=== PATIENT | male | born 1945 | race Caucasian/White ===

== ENCOUNTER → 2017-02-11 | Outpatient (CLI) | payer MEDICARE, BC | LOC: MW.CHIM 08:00 | PROVIDERS: ATTEND Internal Medicine | DX: I48.0 Paroxysmal atrial fibrillation (principal); I82.439 Acute embolism and thrombosis of unspecified popliteal vein; G47.30 Sleep apnea, unspecified; I10 Essential (primary) hypertension | CPT/HCPCS: G0463 ==

== ENCOUNTER → 2017-02-12 | Outpatient (CLI) | payer MEDICARE, BC | LOC: MW.CHRC 08:00 | PROVIDERS: ATTEND Family Medicine | DX: Z51.81 Encounter for therapeutic drug level monitoring (principal); Z79.01 Long term (current) use of anticoagulants; I48.91 Unspecified atrial fibrillation | CPT/HCPCS: 85610; 99211 ==

== ENCOUNTER 2017-02-22 23:44 | Emergency (ER) | payer MEDICARE, BC ==
[2017-02-23] MEDS ORDERED: methylPREDNISolone Sodium Succinate 125 MG/2 ML SDV IVPUSH ONE (00:12)
[2017-02-23] MEDS ORDERED: Sodium Chloride 0.9% 10 ML Syringe FLUSH PRN (00:12)
[2017-02-23] MEDS ORDERED: Sodium Chloride 0.9% 2.5 ML Syringe FLUSH PRN (00:12)
[2017-02-23] MEDS ORDERED: Albuterol/Ipratropium 3.0-0.5 MG/3 ML Neb Soln NEB ONE ×2 (00:12→01:18)
[2017-02-23] MEDS ORDERED: Levofloxacin/Dextrose 5%-Water 750 MG in Premix Bag 1 BAG IV ONE (00:21)
--- NOTE | 2017-02-23 00:31 | EDM.PDOC ---
ED HISTORY OF PRESENT ILLNESS - General Chief Complaint: Respiratory Problem Stated Complaint: CONGESTION Time Seen by Provider: 02/23/17 00:20 Source of Information: Reports: Patient, Family, RN - History of Present Illness INITIAL COMMENTS - FREE TEXT/NARRATIVE: He presented to the emergency department today because of recent cough. He has been on antibiotics for sinusitis. Most recently he took Cefdinir. He continues to cough. Recently he had some sweats. He has never smoked. He denies history of asthma. He denies dust exposure at work. Is retired. - Related Data Allergies/ADRs: Allergies Allergy/AdvReac Type Severity Reaction Status Date / Time amoxicillin [Amoxicillin] Allergy Diarrhea Verified 02/22/17 23:54 clavulanic acid Allergy Diarrhea Verified 02/22/17 23:54 [From Augmentin] doxycycline Allergy Diarrhea Verified 02/22/17 23:54 montelukast AdvReac Diarrhea Verified 02/22/17 23:54 Home Meds: Home Meds Diltiazem HCl [Taztia Xt] 360 mg PO DAILY 04/12/15 [History] Hydrochlorothiazide 25 mg PO DAILY 04/12/15 [History] Metoprolol Tartrate [Lopressor] 25 mg PO BID 04/12/15 [History] Multivitamin [Multivitamins] 1 tab PO DAILY 04/12/15 [History] Olmesartan [Benicar] 10 mg PO DAILY 04/12/15 [History] [place]-3 Fatty Acids [Fish Oil] 1,000 mg pe PO DAILY 04/12/15 [History] Simvastatin [Zocor] 20 mg PO BEDTIME 04/12/15 [History] Azelastine/Fluticasone [Dymista Nasal [place]] 1 spray NASLF DAILY 11/07/15 [ History] Lactobacillus Rhamnosus GG [Culturelle] 1 cap PO DAILY 02/23/17 [History] Sodium Chloride [Saline Nasal [place]] 1 inh INH DAILY 02/23/17 [History] Warfarin Sodium [Jantoven] 5 mg PO ASDIRECTED 02/23/17 [History] Past Medical History HEENT History: Reports: Allergic rhinitis, Impaired vision, Sinusitis Other HEENT History: wears glasses, has dental implants and lower dentures Cardiovascular History: Reports: Afib, High cholesterol, Hypertension Respiratory History: Reports: None Gastrointestinal History: Reports: None Other Gastrointestinal History: occas. 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, no residual effects Psychiatric History: Reports: Anxiety Endocrine/Metabolic History: Reports: None Hematologic History: Reports: None Immunologic History: Reports: None Oncologic (Cancer) History: Reports: None Dermatologic History: Reports: Other (see below) Other Dermatologic History: current rash in groin area - Infectious Disease History Infectious Disease History: Reports: Measles - Past Surgical History HEENT Surgical History: Reports: Naso-sinus surgery Other HEENT Surgeries/Procedures: Sinus surgery Cardiovascular Surgical History: Reports: None Respiratory Surgical History: Reports: None GI Surgical History: Reports: Appendectomy, Cholecystectomy, Hernia, inguinal Male Surgical History: Reports: None Neurological Surgical History: Reports: None Musculoskeletal Surgical History: Reports: Other (see below) Other Musculoskeletal Surgeries/Procedures:: hx of fx neck Social & Family History - Family History Family Medical History: Noncontributory - Tobacco Use Smoking Status *Q: Never Smoker Second Hand Smoke Exposure: No - Caffeine Use Caffeine Use: Reports: Coffee Caffeine Use Comment: 1cup/day - Alcohol Use Days Per Week of Alcohol Use: 7 Number of Drinks Per Day: 1 Total Drinks Per Week: 7 - Recreational Drug Use Recreational Drug Use: No ED ROS GENERAL - Review of Systems Review Of Systems: See Below Constitutional: Reports: other (He had some night sweats.) Respiratory: Reports: Wheezing, Cough Cardiovascular: Denies: Chest pain GI/Abdominal: Denies: Abdominal pain Skin: Denies: cyanosis Neurological: Denies: Confusion Psychiatric: Denies: Agitation ED EXAM, GENERAL - Physical Exam Exam: See Below General Appearance: alert, no apparent distress Ears: normal canal, normal TMs Nose: other (As a feeling of fullness and pressure over his maxillary and frontal sinuses) Throat/Mouth: Normal inspection, Normal oropharynx Head: atraumatic Neck: normal inspection Respiratory/Chest: no respiratory distress, wheezing (Prolongation of expiration noted no dyspnea noted at rest.) Cardiovascular: no JVD, irregularly irregular Course - Vital Signs Last Recorded V/S: Last Vital Signs Temp 97.4 F 02/22/17 23:48 Pulse 86 02/23/17 00:44 Resp 17 02/23/17 00:44 BP 135/84 02/23/17 00:44 Pulse Ox 96 02/23/17 00:44 - Orders/Labs/Meds Orders: Active Orders 24 hr Category Date Time Status RT Aerosol Therapy [RC] ASDIRECTED Care 02/23/17 00:12 Active RT Aerosol Therapy [RC] ASDIRECTED Care 02/23/17 01:19 Ordered CXR [Chest 2V] [CR] Stat Exams 02/23/17 00:13 Taken Albuterol/Ipratropium [DuoNeb 3.0-0.5 MG/3 ML] Med 02/23/17 01:18 Once 3 ml NEB ONETIME ONE Levofloxacin/Dextrose 5%-Water [Levaquin in D5W 750 MG/ Med 02/23/17 00:21 Active 150 ML] 750 mg Premix Bag 1 bag IV ONETIME Sodium Chloride 0.9% [Saline Flush] Med 02/23/17 00:12 Active 10 ml FLUSH ASDIRECTED PRN Sodium Chloride 0.9% [Saline Flush] Med 02/23/17 00:12 Active 2.5 ml FLUSH ASDIRECTED PRN Saline Lock Insert [OM.PC] Stat Oth 02/23/17 00:12 Ordered Medication Orders Levofloxacin/Dextrose 750 mg/ (Premix) 150 mls @ 100 mls/hr IV ONETIME ONE Stop: 02/23/17 01:50 Last Admin: 02/23/17 00:35 Dose: 100 mls/hr Sodium Chloride (Saline Flush) 10 ml FLUSH ASDIRECTED PRN PRN Reason: Keep Vein Open Last Admin: 02/23/17 00:29 Dose: 10 ml Sodium Chloride (Saline Flush) 2.5 ml FLUSH ASDIRECTED PRN PRN Reason: Keep Vein Open Last Admin: 02/23/17 00:29 Dose: 2.5 ml Labs: Laboratory Tests 02/23/17 02/23/17 02/23/17 Range/Units 00:25 00:25 00:25 WBC 9.21 (4.0-11.0) K/uL RBC 4.55 (4.50-5.90) M/uL Hgb 14.5 (13.0-17.0) g/dL Hct 42.6 (38.0-50.0) % MCV 93.6 (80.0-98.0) fL MCH 31.9 (27.0-32.0) pg MCHC 34.0 (31.0-37.0) g/dL RDW Std Deviation 42.2 (28.0-62.0) fl RDW Coeff of Tati 13 (11.0-15.0) % Plt Count 301 (150-400) K/uL MPV 9.70 (7.40-12.00) fL Add Manual Diff YES Neutrophils % (Manual) 54 (48.0-80.0) % Lymphocytes % (Manual) 32 (16.0-40.0) % Monocytes % (Manual) 6 (0.0-15.0) % Eosinophils % (Manual) 8 H (0.0-7.0) % Absolute Seg Neuts 5.0 Band Neutrophils # 2.9 Lymphocytes # (Manual) 2.9 Monocytes # (Manual) 0.6 Eosinophils # (Manual) 0.7 INR 1.85 H (0.86-1.11) Sodium 138 (136-146) mmol/L Potassium 3.8 (3.5-5.1) mmol/L Chloride 101 (98-110) mmol/L Carbon Dioxide 25 (21-31) mmol/L BUN 21 (6.0-23.0) mg/dL Creatinine 1.2 (0.6-1.5) mg/dL Est Cr Clr Drug Dosing 60.18 mL/min Estimated GFR (MDRD) 59.3 ml/min Glucose 129 H (60-110) mg/dL Calcium 9.3 (8.8-10.8) mg/dL Total Bilirubin 0.5 (0.1-1.5) mg/dL AST 24 (5-40) IU/L ALT 33 (8-54) IU/L Alkaline Phosphatase 59 (40-150) B-Natriuretic Peptide (<100) PG/ML Total Protein 6.9 (6.0-8.0) g/dL Albumin 4.0 (3.4-4.8) g/dL Globulin 2.9 (2.0-3.5) g/dL Albumin/Globulin Ratio 1.4 (1.3-2.8) 02/23/17 Range/Units 00:25 WBC (4.0-11.0) K/uL RBC (4.50-5.90) M/uL Hgb (13.0-17.0) g/dL Hct (38.0-50.0) % MCV (80.0-98.0) fL MCH (27.0-32.0) pg MCHC (31.0-37.0) g/dL RDW Std Deviation (28.0-62.0) fl RDW Coeff of Tati (11.0-15.0) % Plt Count (150-400) K/uL MPV (7.40-12.00) fL Add Manual Diff Neutrophils % (Manual) (48.0-80.0) % Lymphocytes % (Manual) (16.0-40.0) % Monocytes % (Manual) (0.0-15.0) % Eosinophils % (Manual) (0.0-7.0) % Absolute Seg Neuts Band Neutrophils # Lymphocytes # (Manual) Monocytes # (Manual) Eosinophils # (Manual) INR (0.86-1.11) Sodium (136-146) mmol/L Potassium (3.5-5.1) mmol/L Chloride (98-110) mmol/L Carbon Dioxide (21-31) mmol/L BUN (6.0-23.0) mg/dL Creatinine (0.6-1.5) mg/dL Est Cr Clr Drug Dosing mL/min Estimated GFR (MDRD) ml/min Glucose (60-110) mg/dL Calcium (8.8-10.8) mg/dL Total Bilirubin (0.1-1.5) mg/dL AST (5-40) IU/L ALT (8-54) IU/L Alkaline Phosphatase (40-150) B-Natriuretic Peptide 225 H (<100) PG/ML Total Protein (6.0-8.0) g/dL Albumin (3.4-4.8) g/dL Globulin (2.0-3.5) g/dL Albumin/Globulin Ratio (1.3-2.8) Meds: Medications Generic Name Dose Route Start Last Admin Trade Name Freq PRN Reason Stop Dose Admin Levofloxacin/Dextrose 750 mg/ 150 mls @ 100 mls/hr 02/23/17 00:21 02/23/17 00 :35 Premix IV 02/23/17 01:50 100 mls/hr ONETIME ONE Administration Sodium Chloride 10 ml 02/23/17 00:12 02/23/17 00:29 Saline Flush FLUSH 10 ml ASDIRECTED PRN Administration Keep Vein Open Sodium Chloride 2.5 ml 02/23/17 00:12 02/23/17 00:29 Saline Flush FLUSH 2.5 ml ASDIRECTED PRN Administration Keep Vein Open Discontinued Medications Generic Name Dose Route Start Last Admin Trade Name Ada PRN Reason Stop Dose Admin Albuterol/Ipratropium 3 ml 02/23/17 00:12 02/23/17 00:28 Duoneb 3.0-0.5 Mg/3 Ml NEB 02/23/17 00:13 3 ml ONETIME ONE Administration Methylprednisolone Sodium Succinate 125 mg 02/23/17 00:12 02/23/17 00:29 Solu-Medrol IVPUSH 02/23/17 00:13 125 mg ONETIME ONE Administration Departure - Departure Time of Disposition: 02:20 Disposition: Home, Self-Care 01 Clinical Impression: Sinusitis, Bronchospasm with bronchitis, acute Forms: ED Department Discharge Additional Instructions: Prescriptions given are Levaquin 500 mg by mouth daily x7 days. Prednisone 40 mg daily x4 days and then 20 mg daily x4 days. Albuterol HFA inhaler 2 puffs every 4 hours when necessary wheezing. He has a followup appointment with ENT specialist this next week. We discussed potential side effect of prednisone being changed in mood or irritability. - My Orders Last 24 Hours: My Active Orders 02/23/17 00:12 RT Aerosol Therapy [RC] ASDIRECTED Sodium Chloride 0.9% [Saline Flush] 10 ml FLUSH ASDIRECTED PRN Sodium Chloride 0.9% [Saline Flush] 2.5 ml FLUSH ASDIRECTED PRN Saline Lock Insert [OM.PC] Stat 02/23/17 00:13 CXR [Chest 2V] [CR] Stat 02/23/17 00:21 Levofloxacin/Dextrose 5%-Water [Levaquin in D5W 750 MG/150 ML] 750 mg Premix Bag 1 bag IV ONETIME 02/23/17 01:18 Albuterol/Ipratropium [DuoNeb 3.0-0.5 MG/3 ML] 3 ml NEB ONETIME ONE 02/23/17 01:19 RT Aerosol Therapy [RC] ASDIRECTED - Assessment/Plan Last 24 Hours: My Active Orders 02/23/17 00:12 RT Aerosol Therapy [RC] ASDIRECTED Sodium Chloride 0.9% [Saline Flush] 10 ml FLUSH ASDIRECTED PRN Sodium Chloride 0.9% [Saline Flush] 2.5 ml FLUSH ASDIRECTED PRN Saline Lock Insert [OM.PC] Stat 02/23/17 00:13 CXR [Chest 2V] [CR] Stat 02/23/17 00:21 Levofloxacin/Dextrose 5%-Water [Levaquin in D5W 750 MG/150 ML] 750 mg Premix Bag 1 bag IV ONETIME 02/23/17 01:18 Albuterol/Ipratropium [DuoNeb 3.0-0.5 MG/3 ML] 3 ml NEB ONETIME ONE 02/23/17 01:19 RT Aerosol Therapy [RC] ASDIRECTED
[2017-02-23 03:30] VITALS: BP 123/83
--- NOTE | 2017-02-25 16:54 | CR ---
EXAM DATE: 02/22/17 PATIENT'S AGE: 71 Patient: NAMRATA MIGUEL Facility: [place], [place] Site . Site : 1945 Study: XRay Chest [id number]/1/[id number] 12:56:38 AM Ordering Physician: Doctor Macario Final Report: INDICATION: cough, congestion. pt states sinus infection for two weeks, cough from drainage starting today TECHNIQUE: Chest radiograph 2 views COMPARISON: 11/07/15 FINDINGS: Cardiovascular and mediastinum: The cardiac silhouette is normal in appearance and size. Mediastinum is within normal limits. Lungs and pleural spaces: Both lungs are unremarkable in appearance. No sign of pleural effusion. No pneumothorax is seen. Bones and soft tissues: No significant findings. IMPRESSION: 1. No acute cardiopulmonary disease seen. Dictated by: Malik Serrato MD @ 02/23/2017 00:59:39 (Electronic Signature) Report Signed by Proxy and Original Signed Document filed in the Medical Record. LIANG[facility]
== END 2017-02-23 02:33 | disposition home or self-care (01) ==
LOC: MW.ED 23:44
DX: J20.9 Acute bronchitis, unspecified (principal); J32.9 Chronic sinusitis, unspecified; I48.91 Unspecified atrial fibrillation; E78.00 Pure hypercholesterolemia, unspecified; I10 Essential (primary) hypertension; F41.9 Anxiety disorder, unspecified; Z86.73 Personal history of transient ischemic attack (TIA), and cerebral infarction without residual deficits; Z79.01 Long term (current) use of anticoagulants; Z79.899 Other long term (current) drug therapy; Z90.49 Acquired absence of other specified parts of digestive tract; Z88.1 Allergy status to other antibiotic agents; Z88.8 Allergy status to other drugs, medicaments and biological substances
CPT/HCPCS: 36415; 71020; 80053; 83880; 85025; 85610; 96365; 96366; 96375; 99284; J1956; J2930; 99283

== ENCOUNTER 2017-02-24 19:31 | Emergency (ER) | payer MEDICARE, BC ==
[2017-02-24] MEDS ORDERED: Albuterol/Ipratropium 3.0-0.5 MG/3 ML Neb Soln NEB ONE (19:58)
[2017-02-24] MEDS ORDERED: guaiFENesin/Dextromethorphan 100-10 MG/5 ML Soln 10 ML Cup PO ONE (21:30)
--- NOTE | 2017-02-24 21:40 | EDM.PDOC ---
ED HISTORY OF PRESENT ILLNESS - General Chief Complaint: Respiratory Problem Stated Complaint: BRONCHITIS Time Seen by Provider: 02/24/17 19:40 Source of Information: Reports: Patient History Limitations: Reports: No limitations - History of Present Illness INITIAL COMMENTS - FREE TEXT/NARRATIVE: History of present illness: [71-year-old male presenting to the ED with concerns of coughing and increasing shortness of breath with cough. Patient indicates he was seen was given antibiotics and an inhaler, he perceives is to be helping him it's just when the infection and "broke loose from my face" it was getting difficult for him to catch his breath with the bouts of coughing.] Review of systems: As per history of present illness and below otherwise all systems reviewed and negative. Past medical history: As per history of present illness and as reviewed below otherwise noncontributory. Surgical history: As per history of present illness and as reviewed below otherwise noncontributory. Social history: No reported history of drug or alcohol abuse. Family history: As per history of present illness and as reviewed below otherwise noncontributory. Physical exam: HEENT: Atraumatic, normocephalic, pupils reactive, negative for conjunctival pallor or scleral icterus, mucous membranes moist, throat clear, neck supple, nontender, trachea midline. Lungs: Clear to auscultation, breath sounds equal bilaterally, chest nontender. Heart: S1S2, regular, negative for clicks, rubs, or JVD. Abdomen: Soft, nondistended, nontender. Negative for masses or hepatosplenomegaly. Negative for costovertebral tenderness. Pelvis: Stable nontender. Genitourinary: Deferred. Rectal: Deferred. Extremities: Atraumatic, negative for cords or calf pain. Neurovascular unremarkable. Neuro: Awake, alert, oriented. Cranial nerves II through XII unremarkable. Cerebellum unremarkable. Motor and sensory unremarkable throughout. Exam nonfocal. Patient observed to have a couple bouts of coughing while in the room noticed 2- D stat to the high 80% (86-88%) it took a period of time for patient to compensate and get back to his baseline which is 93-94% on room air Diagnostics: [Chest x-ray] Therapeutics: [DuraNeb him a Nasonex] Impression: [Cough] Plan: [Mucinex DM] Definitive disposition and diagnosis as appropriate pending reevaluation and review of above. - Related Data Allergies/ADRs: Allergies Allergy/AdvReac Type Severity Reaction Status Date / Time amoxicillin [Amoxicillin] Allergy Diarrhea Verified 02/22/17 23:54 clavulanic acid Allergy Diarrhea Verified 02/22/17 23:54 [From Augmentin] doxycycline Allergy Diarrhea Verified 02/22/17 23:54 montelukast AdvReac Diarrhea Verified 02/22/17 23:54 Home Meds: Home Meds Diltiazem HCl [Taztia Xt] 360 mg PO DAILY 04/12/15 [History] Hydrochlorothiazide 25 mg PO DAILY 04/12/15 [History] Metoprolol Tartrate [Lopressor] 25 mg PO BID 04/12/15 [History] Multivitamin [Multivitamins] 1 tab PO DAILY 04/12/15 [History] Olmesartan [Benicar] 10 mg PO DAILY 04/12/15 [History] [place]-3 Fatty Acids [Fish Oil] 1,000 mg pe PO DAILY 04/12/15 [History] Simvastatin [Zocor] 20 mg PO BEDTIME 04/12/15 [History] Azelastine/Fluticasone [Dymista Nasal [place]] 1 spray NASLF DAILY 11/07/15 [ History] Lactobacillus Rhamnosus GG [Culturelle] 1 cap PO DAILY 02/23/17 [History] Sodium Chloride [Saline Nasal [place]] 1 inh INH DAILY 02/23/17 [History] Warfarin Sodium [Jantoven] 5 mg PO ASDIRECTED 02/23/17 [History] Guaifenesin/Pseudoephedrne HCl [Hm Mucus Rlf D ER 600-60 mg Tb] 1 each PO BID # 30 tab.er.12h 02/24/17 [Rx] Past Medical History HEENT History: Reports: Allergic rhinitis, Impaired vision, Sinusitis Other HEENT History: wears glasses, has dental implants and lower dentures Cardiovascular History: Reports: Afib, High cholesterol, Hypertension Respiratory History: Reports: None Gastrointestinal History: Reports: None Other Gastrointestinal History: occas. 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, no residual effects Psychiatric History: Reports: Anxiety Endocrine/Metabolic History: Reports: None Hematologic History: Reports: None Immunologic History: Reports: None Oncologic (Cancer) History: Reports: None Dermatologic History: Reports: Other (see below) Other Dermatologic History: current rash in groin area - Infectious Disease History Infectious Disease History: Reports: Measles - Past Surgical History HEENT Surgical History: Reports: Naso-sinus surgery Other HEENT Surgeries/Procedures: Sinus surgery Cardiovascular Surgical History: Reports: None Respiratory Surgical History: Reports: None GI Surgical History: Reports: Appendectomy, Cholecystectomy, Hernia, inguinal Male Surgical History: Reports: None Neurological Surgical History: Reports: None Musculoskeletal Surgical History: Reports: Other (see below) Other Musculoskeletal Surgeries/Procedures:: hx of fx neck Social & Family History - Family History Family Medical History: Noncontributory - Tobacco Use Smoking Status *Q: Never Smoker Second Hand Smoke Exposure: No - Caffeine Use Caffeine Use: Reports: None Caffeine Use Comment: 1cup/day - Alcohol Use Days Per Week of Alcohol Use: 7 Number of Drinks Per Day: 1 Total Drinks Per Week: 7 - Recreational Drug Use Recreational Drug Use: No ED ROS GENERAL - Review of Systems Review Of Systems: See Below (History of present illness) ED EXAM, GENERAL - Physical Exam Exam: See Below (See history of present illness) Course - Vital Signs Last Recorded V/S: Last Vital Signs Temp 36.8 C 02/24/17 19:44 Pulse 84 02/24/17 20:30 Resp 18 02/24/17 20:30 BP 115/52 L 02/24/17 20:30 Pulse Ox 95 02/24/17 20:30 - Orders/Labs/Meds Orders: Active Orders 24 hr Category Date Time Status RT Aerosol Therapy [RC] ASDIRECTED Care 02/24/17 19:58 Ordered CXR [Chest 2V] [CR] Stat Exams 02/24/17 20:34 Ordered Meds: Medications Discontinued Medications Generic Name Dose Route Start Last Admin Trade Name Freq PRN Reason Stop Dose Admin Albuterol/Ipratropium 3 ml 02/24/17 19:58 02/24/17 20:06 Duoneb 3.0-0.5 Mg/3 Ml NEB 02/24/17 19:59 3 ml ONETIME ONE Administration Guaifenesin/Dextromethorphan 10 ml 02/24/17 21:30 Robitussin Dm PO 02/24/17 21:31 ONETIME ONE Departure - Departure Time of Disposition: 21:39 Disposition: Home, Self-Care 01 Condition: good Clinical Impression: Cough in adult Prescriptions: Guaifenesin/Pseudoephedrne HCl [Hm Mucus Rlf D ER 600-60 mg Tb] 1 each PO BID # 30 tab.er.12h Forms: ED Department Discharge Additional Instructions: The following information is given to patients seen in the emergency department who are being discharged to home. This information is to outline your options for follow-up care. We provide all patients seen in our emergency department with a follow-up referral. The need for follow-up, as well as the timing and circumstances, are variable depending upon the specifics of your emergency department visit. If you don't have a primary care physician on staff, we will provide you with a referral. We always advise you to contact your personal physician following an emergency department visit to inform them of the circumstance of the visit and for follow-up with them and/or the need for any referrals to a consulting specialist. The emergency department will also refer you to a specialist when appropriate. This referral assures that you have the opportunity for follow-up care with a specialist. All of these measure are taken in an effort to provide you with optimal care, which includes your follow-up. Under all circumstances we always encourage you to contact your private physician who remains a resource for coordinating your care. When calling for follow-up care, please make the office aware that this follow-up is from your recent emergency room visit. If for any reason you are refused follow-up, please contact the [facility] Emergency Department at and asked to speak to the emergency department charge nurse. Take medication as directed Followup with primary care provider in tomorrow for reevaluation Return to ED as needed as discussed - My Orders Last 24 Hours: My Active Orders 02/24/17 19:58 RT Aerosol Therapy [RC] ASDIRECTED 02/24/17 20:34 CXR [Chest 2V] [CR] Stat - Assessment/Plan Last 24 Hours: My Active Orders 02/24/17 19:58 RT Aerosol Therapy [RC] ASDIRECTED 02/24/17 20:34 CXR [Chest 2V] [CR] Stat
[2017-02-24] MEDS ORDERED: guaiFENesin/Dextromethorphan 100-10 MG/5 ML Soln 10 ML Cup ONE (22:09)
[2017-02-24 23:29] VITALS: BP 112/61
--- NOTE | 2017-02-25 19:18 | CR ---
EXAM DATE: 02/24/17 PATIENT'S AGE: 71 Patient: NAMRATA MIGUEL Facility: [place], [place] Site . Site : 1945 Study: XRay Chest [id number]/2/[id number] 8:54:26 PM Ordering Physician: Doctor Macario Final Report: INDICATIONS: Shortness of breath. Cough. Sinus congestion. TECHNIQUE: Chest 2 view. COMPARISON: Chest radiograph February 23, 2017. FINDINGS: No pneumothorax or pleural effusion. Mild left basilar scarring or atelectasis, unchanged. Lungs are otherwise clear. Aortic atherosclerosis and tortuosity as before. Borderline cardiomegaly. No pulmonary edema. Upper abdomen and osseous structures show no acute abnormality. IMPRESSION: No evidence of acute cardiopulmonary disease. Dictated by Elder Schwartz MD @ 02/24/2017 9:23:54 PM Dictated by: Elder Schwartz MD @ 02/24/2017 21:24:07 (Electronic Signature) Report Signed by Proxy and Original Signed Document filed in the Medical Record. [facility]
== END 2017-02-24 22:18 | disposition home or self-care (01) ==
LOC: MW.ED 19:31
DX: R05 Cough (principal); I48.91 Unspecified atrial fibrillation; I10 Essential (primary) hypertension; E78.00 Pure hypercholesterolemia, unspecified; Z86.73 Personal history of transient ischemic attack (TIA), and cerebral infarction without residual deficits; Z79.01 Long term (current) use of anticoagulants; Z79.899 Other long term (current) drug therapy; Z90.49 Acquired absence of other specified parts of digestive tract; Z98.890 Other specified postprocedural states; Z88.1 Allergy status to other antibiotic agents; Z88.8 Allergy status to other drugs, medicaments and biological substances
CPT/HCPCS: 71020; 94664; 99283; A9270; 99284

== ENCOUNTER → 2017-03-12 | Outpatient (CLI) | payer MEDICARE, BC | LOC: MW.CHRC 08:00 | PROVIDERS: ATTEND Family Medicine | DX: Z51.81 Encounter for therapeutic drug level monitoring (principal); Z79.01 Long term (current) use of anticoagulants; I48.91 Unspecified atrial fibrillation | CPT/HCPCS: 85610; 99211 ==

== ENCOUNTER → 2017-03-14 | Outpatient (CLI) | payer MEDICARE, BC | LOC: MW.CHRC 08:00 | PROVIDERS: ATTEND Family Medicine | DX: Z51.81 Encounter for therapeutic drug level monitoring (principal); Z79.01 Long term (current) use of anticoagulants; I48.91 Unspecified atrial fibrillation | CPT/HCPCS: 85610; 99211 ==

== ENCOUNTER → 2017-03-25 | Outpatient (CLI) | payer MEDICARE, BC | LOC: MW.CHRC 08:00 | PROVIDERS: ATTEND Family Medicine | DX: Z51.81 Encounter for therapeutic drug level monitoring (principal); Z79.01 Long term (current) use of anticoagulants; I48.91 Unspecified atrial fibrillation | CPT/HCPCS: 85610; 99211 ==

== ENCOUNTER → 2017-04-16 | Outpatient (CLI) | payer MEDICARE, BC | LOC: MW.CHGS 08:00 | PROVIDERS: ATTEND Surgery | DX: R19.4 Change in bowel habit (principal); I48.91 Unspecified atrial fibrillation; Z79.01 Long term (current) use of anticoagulants; F41.1 Generalized anxiety disorder | CPT/HCPCS: 99214 ==

== ENCOUNTER 2017-05-06 10:49 | Day surgery (SDC) | payer MEDICARE, BC ==
[~2017-05-06 10:49] MED LIST: Lactated Ringers 1,000 ML IV SCH; Midazolam 1 MG/ML 2 ML SDV ONE; Propofol 200 MG/20 ML SDV ONE; fentaNYL 100 MCG/2 ML SDV ONE
--- NOTE | 2017-05-06 11:48 | PCM.PREANE ---
Preanesthetic Assessment - Anesthesia/Transfusion/Family Hx Anesthesia History: Prior Anesthesia Without Reaction Family History of Anesthesia Reaction: No Transfusion History: No Prior Transfusion(s) Intubation History: Unknown - Review of Systems General: No Symptoms Pulmonary: No Symptoms Cardiovascular: No Symptoms Gastrointestinal: Diarrhea Neurological: No Symptoms Other: Reports: None - Physical Assessment O2 Sat by Pulse Oximetry: 96 Respiratory Rate: 16 Vital Signs: Last Vital Signs Temp 36.2 C 05/06/17 11:28 Pulse 96 05/06/17 11:28 Resp 16 05/06/17 11:28 BP 142/92 H 05/06/17 11:28 Pulse Ox 96 05/06/17 11:28 Height: 1.83 m Weight: 96.615 kg ASA Class: 3 Mental Status: Alert & Oriented x3 Airway Class: Mallampati = 2 Dentition: Reports: Partial (lower), Bridge (upper front) Thyro-Mental Finger Breadths: 2 Mouth Opening Finger Breadths: 3 ROM/Head Extension: Limited/Partial Lungs: Clear to auscultation, Normal respiratory effort Cardiovascular: Regular Rate, Regular Rhythm - Allergies Allergies/Adverse Reactions: Allergies Allergy/AdvReac Type Severity Reaction Status Date / Time amoxicillin [Amoxicillin] Allergy Diarrhea Verified 05/02/17 15:26 clavulanic acid Allergy Diarrhea Verified 05/02/17 15:26 [From Augmentin] doxycycline Allergy Diarrhea Verified 05/02/17 15:26 montelukast AdvReac Diarrhea Verified 05/02/17 15:26 - Blood Blood Available: No - Anesthesia Plan Pre-Op Medication Ordered: None Beta Elmo: Metoprolol Med Last Dose Date: 05/06/17 Med Last Dose Time: 08:00 - Acknowledgements Anesthesia Type Planned: MAC Pt an Appropriate Candidate for the Planned Anesthesia: Yes Alternatives and Risks of Anesthesia Discussed w Pt/Guardian: Yes Pt/Guardian Understands and Agrees with Anesthesia Plan: Yes PreAnesthesia Questionnaire HEENT History: Reports: Allergic Rhinitis, Impaired Vision, Sinusitis Other HEENT History: wears glasses, has dental implants and lower dentures Cardiovascular History: Reports: Afib, High Cholesterol, Hypertension, Other ( See Below) (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 heartburn Genitourinary History: Reports: BPH, Other (See Below) Other Genitourinary History: was told he has a "fatty liver" Musculoskeletal History: Reports: Back Pain, Chronic, Fracture Other Musculoskeletal History: states has degenerative discs, hx of FX neck ' 02 wore hallo - no surgery needed Neurological History: Reports: Concussion, TIA Other Neuro History: TIA 12 years ago, no residual effects Psychiatric History: Reports: Anxiety Endocrine/Metabolic History: Reports: None Hematologic History: Reports: Anticoagulation Therapy Immunologic History: Reports: None Oncologic (Cancer) History: Reports: None Dermatologic History: Reports: None - Infectious Disease History Infectious Disease History: Reports: Measles - Past Surgical History Head Surgeries/Procedures: Reports: None HEENT Surgical History: Reports: Naso-Sinus Surgery Other HEENT Surgeries/Procedures: Sinus surgery Cardiovascular Surgical History: Reports: None Respiratory Surgical History: Reports: None GI Surgical History: Reports: Appendectomy, Cholecystectomy, Colonoscopy, Hernia , Inguinal Male Surgical History: Reports: None Endocrine Surgical History: Reports: None Neurological Surgical History: Reports: None Musculoskeletal Surgical History: Reports: Other (See Below) Other Musculoskeletal Surgeries/Procedures:: hx of fx neck Oncologic Surgical History: Reports: None Dermatological Surgical History: Reports: None - SUBSTANCE USE Smoking Status *Q: Never Smoker Second Hand Smoke Exposure: No Days Per Week of Alcohol Use: 7 Number of Drinks Per Day: 1 Total Drinks Per Week: 7 Recreational Drug Use History: No - HOME MEDS Home Medications: Home Meds Diltiazem HCl [Taztia Xt] 360 mg PO DAILY 04/12/15 [History] Metoprolol Tartrate [Lopressor] 25 mg PO BID 04/12/15 [History] Multivitamin [Multivitamins] 1 tab PO DAILY 04/12/15 [History] Olmesartan [Benicar] 10 mg PO DAILY 04/12/15 [History] Sheyenne-3 Fatty Acids [Fish Oil] 1,000 mg pe PO DAILY 04/12/15 [History] Simvastatin [Zocor] 20 mg PO BEDTIME 04/12/15 [History] Lactobacillus Rhamnosus GG [Culturelle] 1 cap PO DAILY 02/23/17 [History] Warfarin Sodium [Jantoven] 5 mg PO ASDIRECTED 02/23/17 [History] Colestipol HCl 1 tab PO ASDIRECTED 05/02/17 [History] Fiber Complete 1 tab PO ASDIRECTED 05/02/17 [History] Fluticasone Propionate [Flonase Allergy Relief] 1 - 2 spray NASBOTH DAILY [History] Hydrochlorothiazide 25 mg PO DAILY 05/02/17 [History] Tamsulosin HCl [Flomax] 0.4 mg PO BEDTIME 05/02/17 [History] Vit C/Vasquez Ac/Lut/Copper/ZnOx [Preservision Lutein Softgel] 1 tab PO DAILY 05/02 [History] - CURRENT (IN HOUSE) MEDS Current Meds: Current Medications Lactated Ringer's (Ringers, Lactated) 1,000 mls @ 125 mls/hr IV ASDIRECTED [facility] Last Admin: 05/06/17 11:30 Dose: 125 mls/hr Discontinued Medications Fentanyl (Sublimaze) Confirm Administered Dose 100 mcg .ROUTE .STK-MED ONE Stop: 05/06/17 07:21 Midazolam HCl (Versed 1 Mg/Ml) Confirm Administered Dose 2 mg .ROUTE .STK-MED ONE Stop: 05/06/17 07:21 Propofol (Diprivan 20 Ml) Confirm Administered Dose 200 mg .ROUTE .STK-MED ONE Stop: 05/06/17 07:21
[2017-05-06] MEDS ORDERED: Propofol 200 MG/20 ML SDV ONE (14:13)
--- NOTE | 2017-05-06 14:41 | PCM.OPNOTE ---
- General Post-Op/Procedure Note Date of Surgery/Procedure: 05/06/17 Operative Procedure(s): Colonoscopy Pre Op Diagnosis: Change in bowel habits Post-Op Diagnosis: No evidence of neoplasia. No inflammatory changes. Anesthesia Technique: MAC (ASA III) Primary Surgeon: Rico Baltazar Condition: Good Free Text/Narrative:: Dictation [id number]
[2017-05-06] MEDS ORDERED: Lactated Ringers 1,000 ML IV SCH (14:45)
--- NOTE | 2017-05-06 14:48 | PCM.POSTAN ---
POST ANESTHESIA ASSESSMENT - MENTAL STATUS Mental Status: alert, oriented - RESPIRATORY Respiratory Status: respiratory rate WNL, airway patent, O2 saturation stable - CARDIOVASCULAR CV Status: pulse rate WNL, blood pressure stable - GASTROINTESTINAL GI Status: no symptoms - POST OP HYDRATION Hydration Status: adequate & stable - OBSERVATIONS Free Text/Narrative:: no anesthesia problems
--- NOTE | 2017-05-06 15:48 | PCM48HPAN ---
Post Anesthesia Note - EVALUATION WITHIN 48HRS OF ANESTHETIC Vital Signs in Normal Range: Yes Patient Participated in Evaluation: Yes Respiratory Function Stable: Yes Airway Patent: Yes Cardiovascular Function Stable: Yes Hydration Status Stable: Yes Pain Control Satisfactory: Yes Nausea and Vomiting Control Satisfactory: Yes Mental Status Recovered: Yes
[2017-05-06 16:41] VITALS: BP 114/72
--- NOTE | 2017-05-06 21:05 | OR ---
SURGEON: Rico Baltazar M.D. DATE OF PROCEDURE: 05/06/2017 OPERATION PERFORMED: Colonoscopy. ANESTHESIA: MAC. ASA CLASSIFICATION: III. PREOPERATIVE DIAGNOSIS: Change in bowel habits. POSTOPERATIVE DIAGNOSIS: No evidence of neoplasia. DESCRIPTION OF PROCEDURE: The patient was taken to the endoscopy room and placed on the endoscopy table in the left lateral decubitus position. Time-out was called for appropriate identification of the patient and procedure. Monitored anesthesia care was provided. The colonoscope was inserted into the rectum and advanced without difficulty to the cecum where the colonoscope was retroflexed to visualize the ascending colon from below. The colonoscope was then straightened and slowly withdrawn. The cecum, ascending colon, hepatic flexure, transverse colon, splenic flexure, descending colon, sigmoid colon, and rectum were very well visualized. No tumors, polyps, diverticula, or angiodysplastic changes were noted. There was no inflammatory change noted anywhere in the lower gastrointestinal tract. No stricture or spasm was noted. Once the colonoscope was withdrawn to the rectum, it was retroflexed to visualize the anal orifice from above. No tumors or polyps were seen and there were no acute hemorrhoidal changes. The colonoscope was straightened the rectum aspirated, and the colonoscope was removed. The patient tolerated the procedure well and was taken to recovery room in stable condition. DAYNA MALHOTRA /[id number]
== END 2017-05-06 15:30 | disposition home or self-care (01) ==
LOC: MW.SDS 10:49
PROVIDERS: ATTEND Surgery
PROC: 0DJD8ZZ Inspection of Lower Intestinal Tract, Via Natural or Artificial Opening Endoscopic (ICD-10-PCS; principal; 2017-05-06)
DX: R19.4 Change in bowel habit (principal); F41.1 Generalized anxiety disorder; G47.30 Sleep apnea, unspecified; I48.91 Unspecified atrial fibrillation; N40.1 Benign prostatic hyperplasia with lower urinary tract symptoms; R35.1 Nocturia; E78.00 Pure hypercholesterolemia, unspecified; I10 Essential (primary) hypertension; Z88.0 Allergy status to penicillin; Z88.1 Allergy status to other antibiotic agents; Z88.8 Allergy status to other drugs, medicaments and biological substances; Z86.73 Personal history of transient ischemic attack (TIA), and cerebral infarction without residual deficits; Z86.718 Personal history of other venous thrombosis and embolism; Z79.01 Long term (current) use of anticoagulants; Z79.51 Long term (current) use of inhaled steroids; Z79.899 Other long term (current) drug therapy; Z90.49 Acquired absence of other specified parts of digestive tract; Z98.890 Other specified postprocedural states
CPT/HCPCS: 36415; 45378; 85610; J3010; J7120; 00810; J2250; J2704

== ENCOUNTER 2017-08-29 15:30 | Observation (INO) | payer MEDICARE, BC ==
[~2017-08-29 15:30] MED LIST changes: -Lactated Ringers 1,000 ML IV SCH; -Midazolam 1 MG/ML 2 ML SDV ONE; -Propofol 200 MG/20 ML SDV ONE; +Warfarin 5 MG Tab PO SCH; -fentaNYL 100 MCG/2 ML SDV ONE
[2017-08-29] MEDS ORDERED: Ondansetron 4 MG/2 ML SDV IVPUSH ONE (16:03)
[2017-08-29] MEDS ORDERED: Sodium Chloride 0.9% 10 ML Syringe FLUSH PRN (16:03)
[2017-08-29] MEDS ORDERED: Pantoprazole 40 MG Vial IVPUSH ONE (16:03)
[2017-08-29] MEDS ORDERED: Sodium Chloride 0.9% 1,000 ML IV ONE (16:03)
[2017-08-29] MEDS ORDERED: Sodium Chloride 0.9% 2.5 ML Syringe FLUSH PRN (16:03)
--- NOTE | 2017-08-29 16:08 | EDM.PDOC ---
ED HPI GENERAL MEDICAL PROBLEM - General Chief Complaint: Syncope Stated Complaint: DIZZY AND WEAK Time Seen by Provider: 08/29/17 15:49 - History of Present Illness INITIAL COMMENTS - FREE TEXT/NARRATIVE: HISTORY AND PHYSICAL: History of present illness: The patient is a 72-year-old male with a known history of hypercholesterolemia A. fib DVT and on Coumadin therapy who follows at [facility] with Dr. 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 Silver; the patient presents today with a one -month history of arrests back pain for which she has seen his provider and has an MRI scheduled and has been using [id number] ibuprofen and complains of feeling very weak and sleepy the last few days and today at the store felt like he might pass out due to generalized weakness. The patient denies any focal extremity or area of weakness on his body and is not dizzy but he is more lightheaded and feels completely drained like he would pass out. He did not actually pass out or black out and has no head or neck pain but has this chronic mid thoracic pain that radiates up and down his spine. He says it is not flank pain and he has no urinary complaints. Patient has been using over-the -counter ibuprofen for the discomfort and has no other pain medications prescribed for that. He has no neurovascular changes in his legs. He has no anterior abdominal pain and no chest pain or shortness of breath. The patient states that he just feels so drowsy and sleepy the last few days and he said that when he was at the store he almost felt like he might does fall asleep while he was walking. Patient has a history of a colonoscopy a month ago that was normal and he says that he actually saw his railroad police yesterday Dr. Silver. He was told that everything was okay from that standpoint. He had a bowel movement today that was not black or bloody and no diarrhea and has been eating and drinking normally. Currently in the ER he is complaining mostly of severe nausea and this profound weakness. Review of systems: As per history of present illness and below otherwise all systems reviewed and negative. Past medical history: As per history of present illness and as reviewed below otherwise noncontributory. Surgical history: As per history of present illness and as reviewed below otherwise noncontributory. Social history: No reported history of drug or alcohol abuse. Family history: As per history of present illness and as reviewed below otherwise noncontributory. Physical exam: Gen.: Well-developed well-nourished man who is intermittently having some dry heaves in the ER but no vomitus. Vital signs have been noted by me. He moves easily in the ED without discomfort or assistance. He speaks clearly and easily HEENT: Atraumatic, normocephalic, pupils reactive, negative for conjunctival pallor or scleral icterus, mucous membranes moist, throat clear, neck supple, nontender, trachea midline. Lungs: Clear to auscultation, breath sounds equal bilaterally, chest nontender. No worker breathing or sensory muscle use Heart: S1S2, regular, negative for clicks, rubs, or JVD. Abdomen: Soft, nondistended, nontender. No palpable masses rebound or guarding and bowel sounds are slightly hypoactive. There is no tympany on percussion Negative for masses or hepatosplenomegaly. Negative for costovertebral tenderness. Pelvis: Stable nontender. Genitourinary: Deferred. Rectal: Deferred. Extremities: Atraumatic, negative for cords or calf pain. Neurovascular unremarkable. No pedal edema Neuro: Awake, alert, oriented. Cranial nerves II through XII unremarkable. Cerebellum unremarkable. Motor and sensory unremarkable throughout. Exam nonfocal. Skin: No rashes or lesions are seen overtly and turgor is normal. Patient overall has a slight pale appearance Diagnostics: EKG CBC CMP amylase lipase troponin INR UA orthostatic vitals CT scan of the head chest abdomen and pelvis including thoracic spine Therapeutics: IV O2 monitor IV fluids Zofran Morphine 1740: Dr. Phelan was present in the ER in case was discussed with him at this time. He is aware CT scans are pending but he has agreed for admission and continued monitoring for the near syncopal symptoms. I will follow-up the CAT scans and only change the admission and re-disposition as indicated. All labs have been reviewed. 1845: All the CT scans have been reviewed and I also discussed the chest abdomen and pelvis with the radiologist. There is no acute process in his chest abdomen and pelvis but he does have endplate fractures of T3-T4 and T12 of unclear age which may be causing his thoracic spine pain. We will continue to process and transferred to the floor for observation admission. I discussed all these results with the patient and family at bedside. Impression: Near syncope/nausea and vomiting with history of subacute thoracic back pain, endplate fractures of the vertebral bodies of T3-T4 and T12 age indeterminant Definitive disposition and diagnosis as appropriate pending reevaluation and review of above. - Related Data Allergies Allergy/AdvReac Type Severity Reaction Status Date / Time amoxicillin [Amoxicillin] Allergy Diarrhea Verified 08/29/17 15:43 clavulanic acid Allergy Diarrhea Verified 08/29/17 15:43 [From Augmentin] doxycycline Allergy Diarrhea Verified 08/29/17 15:43 montelukast AdvReac Diarrhea Verified 08/29/17 15:43 Home Meds: Home Meds Diltiazem HCl [Taztia Xt] 360 mg PO DAILY 04/12/15 [History] Metoprolol Tartrate [Lopressor] 25 mg PO BID 04/12/15 [History] Multivitamin [Multivitamins] 1 tab PO DAILY 04/12/15 [History] Olmesartan [Benicar] 10 mg PO DAILY 04/12/15 [History] [place]-3 Fatty Acids [Fish Oil] 1,000 mg pe PO DAILY 04/12/15 [History] Simvastatin [Zocor] 20 mg PO BEDTIME 04/12/15 [History] Lactobacillus Rhamnosus GG [Culturelle] 1 cap PO DAILY 02/23/17 [History] Warfarin Sodium [Jantoven] 5 mg PO ASDIRECTED 02/23/17 [History] Colestipol HCl 1 tab PO ASDIRECTED 05/02/17 [History] Fiber Complete 1 tab PO ASDIRECTED 05/02/17 [History] Fluticasone Propionate [Flonase Allergy Relief] 1 - 2 spray NASBOTH DAILY [History] Hydrochlorothiazide 25 mg PO DAILY 05/02/17 [History] Tamsulosin HCl [Flomax] 0.4 mg PO DAILY 05/02/17 [History] Vit C/Vasquez Ac/Lut/Copper/ZnOx [Preservision Lutein Softgel] 1 tab PO DAILY 05/02 [History] Past Medical History HEENT History: Reports: Allergic Rhinitis, Impaired Vision, Sinusitis Other HEENT History: wears glasses, has dental implants and lower dentures Cardiovascular History: Reports: Afib, High Cholesterol, Hypertension, Other ( See Below) Respiratory History: Reports: None, Sleep Apnea Gastrointestinal History: Reports: None Other Gastrointestinal History: occas. heartburn Genitourinary History: Reports: Other (See Below) Other Genitourinary History: was told he has a "fatty liver" Musculoskeletal History: Reports: Back Pain, Chronic Other Musculoskeletal History: states has degenerative discs, hx of FX neck ' 02 wore hallo - no surgery needed Neurological History: Reports: TIA Other Neuro History: TIA 12 years ago, no residual effects Psychiatric History: Reports: Anxiety Endocrine/Metabolic History: Reports: None Hematologic History: Reports: None Immunologic History: Reports: None Oncologic (Cancer) History: Reports: None Dermatologic History: Reports: Other (See Below) Other Dermatologic History: current rash in groin area - Infectious Disease History Infectious Disease History: Reports: Measles - Past Surgical History Head Surgeries/Procedures: Reports: None HEENT Surgical History: Reports: Naso-Sinus Surgery Other HEENT Surgeries/Procedures: Sinus surgery Cardiovascular Surgical History: Reports: None Respiratory Surgical History: Reports: None Endocrine Surgical History: Reports: None Oncologic Surgical History: Reports: None Social & Family History - Family History Family Medical History: Noncontributory - Tobacco Use Smoking Status *Q: Never Smoker Second Hand Smoke Exposure: No - Caffeine Use Caffeine Use: Reports: None Caffeine Use Comment: 1cup/day - Alcohol Use Days Per Week of Alcohol Use: 7 Number of Drinks Per Day: 1 Total Drinks Per Week: 7 - Recreational Drug Use Recreational Drug Use: No Drug Use in Last 12 Months: No ED ROS GENERAL - Review of Systems Review Of Systems: ROS reveals no pertinent complaints other than HPI. ED EXAM, GENERAL - Physical Exam Exam: See Below (See dictation) Course - Vital Signs Last Recorded V/S: Last Vital Signs Temp 36.6 C 08/29/17 15:30 Pulse 86 08/29/17 18:20 Resp 16 08/29/17 18:20 BP 132/77 08/29/17 18:20 Pulse Ox 96 08/29/17 15:30 Orthostatic Blood Pressure [ 116/71 Supine] Orthostatic Blood Pressure [ 111/66 Standing] - Orders/Labs/Meds Orders: Active Orders 24 hr Category Date Time Status Patient Status [ADT] Routine ADT 08/29/17 17:46 Active Ambulate [RC] PER UNIT ROUTINE Care 08/29/17 17:48 Active Cardiac Monitoring [RC] . DIRECTED Care 08/29/17 15:59 Active Cardiac Monitoring [RC] CONTINUOUS Care 08/29/17 17:48 Active EKG Documentation Completion [RC] STAT Care 08/29/17 15:59 Active Orthostatic Vital Signs [RC] ASDIRECTED Care 08/29/17 16:03 Active Oxygen Therapy [RC] PRN Care 08/29/17 17:46 Active Oxygen Therapy, ED [RC] ASDIRECTED Care 08/29/17 15:59 Active Pulse Oximetry [RC] ASDIRECTED Care 08/29/17 15:59 Active Up With Assistance [RC] ASDIRECTED Care 08/29/17 17:46 Active VTE/DVT Education [RC] PER UNIT ROUTINE Care 08/29/17 17:46 Active Vital Signs [RC] Q4H Care 08/29/17 17:46 Active 2 Gram Sodium Diet [DIET] Diet 08/30/17 Breakfast Active Ang Abdomen [CT] Stat Exams 08/29/17 16:01 Taken Ang Chest [CT] Stat Exams 08/29/17 16:01 Taken Head wo Cont [CT] Stat Exams 08/29/17 16:02 Taken Thoracic Spine wo Cont [CT] Stat Exams 08/29/17 16:02 Taken CBC WITH AUTO DIFF [HEME] AM Lab 08/30/17 05:11 Ordered COMPREHENSIVE METABOLIC PN,CMP [CHEM] AM Lab 08/30/17 05:11 Ordered INR,PT,PROTHROMBIN TIME [COAG] AM Lab 08/30/17 05:11 Ordered INR,PT,PROTHROMBIN TIME [COAG] AM Lab 08/31/17 05:11 Ordered INR,PT,PROTHROMBIN TIME [COAG] AM Lab 09/01/17 05:11 Ordered Acetaminophen [Tylenol] Med 08/29/17 17:46 Active 650 mg PO Q4H PRN Diltiazem [Cardizem CD] Med 08/30/17 09:00 Active 360 mg PO DAILY Hydrochlorothiazide Med 08/30/17 09:00 Active 25 mg PO DAILY Metoprolol Tartrate [Lopressor] Med 08/29/17 21:00 Active 25 mg PO BID Morphine Med 08/29/17 17:46 Active 2 mg IVPUSH Q2H PRN Olmesartan [Benicar] Med 08/30/17 09:00 Active 10 mg PO DAILY Ondansetron [Zofran ODT] Med 08/29/17 17:46 Active 4 mg PO Q4H PRN Sodium Chloride 0.9% [Normal Saline] 1,000 ml Med 08/29/17 18:00 Active IV ASDIRECTED Sodium Chloride 0.9% [Saline Flush] Med 08/29/17 16:03 Active 10 ml FLUSH ASDIRECTED PRN Sodium Chloride 0.9% [Saline Flush] Med 08/29/17 16:03 Active 2.5 ml FLUSH ASDIRECTED PRN Tamsulosin [Flomax] Med 08/29/17 21:00 Active 0.4 mg PO BEDTIME Warfarin [Coumadin] Med 09/05/17 14:00 Active 2.5 mg PO Th@1400 Warfarin [Coumadin] Med 08/29/17 14:00 Active 5 mg PO SuMoTuWeFrSa@1400 Saline Lock Insert [OM.PC] Stat Oth 08/29/17 15:59 Ordered VTE Pharmacological Contraindications [AST] Per Unit Oth 08/29/17 17:46 Ordered Routine Resuscitation Status Routine Resus Stat 08/29/17 17:46 Ordered Medication Orders Acetaminophen (Tylenol) 650 mg PO Q4H PRN PRN Reason: Pain (Mild 1-3)/fever Diltiazem HCl (Cardizem Cd) 360 mg PO DAILY LALA Hydrochlorothiazide (Hydrochlorothiazide) 25 mg PO DAILY LALA Sodium Chloride (Normal Saline) 1,000 mls @ 80 mls/hr IV ASDIRECTED LALA Last Admin: 08/29/17 18:26 Dose: 80 mls/hr Metoprolol Tartrate (Lopressor) 25 mg PO BID LALA Morphine Sulfate (Morphine) 2 mg IVPUSH Q2H PRN PRN Reason: Pain (severe 7-10) Stop: 08/30/17 17:50 Olmesartan (Benicar) 10 mg PO DAILY [facility] Ondansetron HCl (Zofran Odt) 4 mg PO Q4H PRN PRN Reason: nausea, able to take PO Sodium Chloride (Saline Flush) 10 ml FLUSH ASDIRECTED PRN PRN Reason: Keep Vein Open Last Admin: 08/29/17 16:10 Dose: 10 ml Sodium Chloride (Saline Flush) 2.5 ml FLUSH ASDIRECTED PRN PRN Reason: Keep Vein Open Last Admin: 08/29/17 16:58 Dose: 2.5 ml Tamsulosin HCl (Flomax) 0.4 mg PO BEDTIME LALA Warfarin Sodium (Coumadin) 5 mg PO SuMoTuWeFrSa@1400 [facility] Warfarin Sodium (Coumadin) 2.5 mg PO Th@1400 [facility] Labs: Laboratory Tests 08/29/17 08/29/17 08/29/17 Range/Units 16:00 16:00 16:00 WBC 9.62 (4.0-11.0) K/uL RBC 4.61 (4.50-5.90) M/uL Hgb 14.8 (13.0-17.0) g/dL Hct 43.3 (38.0-50.0) % MCV 93.9 (80.0-98.0) fL MCH 32.1 H (27.0-32.0) pg MCHC 34.2 (31.0-37.0) g/dL RDW Std Deviation 46.0 (28.0-62.0) fl RDW Coeff of Tati 14 (11.0-15.0) % Plt Count 305 (150-400) K/uL MPV 9.50 (7.40-12.00) fL Neut % (Auto) 67.3 (48.0-80.0) % Lymph % (Auto) 21.1 (16.0-40.0) % Mcdonald % (Auto) 9.4 (0.0-15.0) % Eos % (Auto) 1.9 (0.0-7.0) % Baso % (Auto) 0.3 (0.0-1.5) % Neut # (Auto) 6.5 H (1.4-5.7) K/uL Lymph # (Auto) 2.0 (0.6-2.4) K/uL Mcdonald # (Auto) 0.9 H (0.0-0.8) K/uL Eos # (Auto) 0.2 (0.0-0.7) K/uL Baso # (Auto) 0.0 (0.0-0.1) K/uL Nucleated RBC % 0.0 /100WBC Nucleated RBCs # 0 K/uL INR 2.21 H (0.86-1.11) Sodium 138 (136-146) mmol/L Potassium 3.8 (3.5-5.1) mmol/L Chloride 104 (98-110) mmol/L Carbon Dioxide 24 (21-31) mmol/L BUN 23 (6.0-23.0) mg/dL Creatinine 1.1 (0.6-1.5) mg/dL Est Cr Clr Drug Dosing 64.67 mL/min Estimated GFR (MDRD) > 60.0 ml/min Glucose 103 (60-110) mg/dL Calcium 9.6 (8.8-10.8) mg/dL Phosphorus (2.4-4.7) mg/dL Magnesium (1.5-2.3) mEq/L Total Bilirubin 0.5 (0.1-1.5) mg/dL AST 27 (5-40) IU/L ALT 29 (8-54) IU/L Alkaline Phosphatase 47 (40-150) Troponin I (0.0-0.29) NG/ML Total Protein 7.1 (6.0-8.0) g/dL Albumin 4.2 (3.4-4.8) g/dL Globulin 2.9 (2.0-3.5) g/dL Albumin/Globulin Ratio 1.5 (1.3-2.8) Amylase 42 (10-90) U/L Lipase 27 (7-80) U/L Urine Color Urine Appearance Urine pH (5.0-8.0) Ur Specific [place] (1.001-1.035) Urine Protein (NEGATIVE) mg/dL Urine Glucose (UA) (NEGATIVE) mg/dL Urine Ketones (NEGATIVE) mg/dL Urine Occult Blood (NEGATIVE) Urine Nitrite (NEGATIVE) Urine Bilirubin (NEGATIVE) Urine Urobilinogen (<2.0) EU/dL Ur Leukocyte Esterase (NEGATIVE) Urine RBC (0-2/HPF) Urine WBC (0-5/HPF) Ur Epithelial Cells (NONE-FEW) Amorphous Sediment (NEGATIVE) Urine Bacteria (NEGATIVE) 08/29/17 08/29/17 08/29/17 Range/Units 16:00 16:10 17:25 WBC (4.0-11.0) K/uL RBC (4.50-5.90) M/uL Hgb (13.0-17.0) g/dL Hct (38.0-50.0) % MCV (80.0-98.0) fL MCH (27.0-32.0) pg MCHC (31.0-37.0) g/dL RDW Std Deviation (28.0-62.0) fl RDW Coeff of Tati (11.0-15.0) % Plt Count (150-400) K/uL MPV (7.40-12.00) fL Neut % (Auto) (48.0-80.0) % Lymph % (Auto) (16.0-40.0) % Mcdonald % (Auto) (0.0-15.0) % Eos % (Auto) (0.0-7.0) % Baso % (Auto) (0.0-1.5) % Neut # (Auto) (1.4-5.7) K/uL Lymph # (Auto) (0.6-2.4) K/uL Mcdonald # (Auto) (0.0-0.8) K/uL Eos # (Auto) (0.0-0.7) K/uL Baso # (Auto) (0.0-0.1) K/uL Nucleated RBC % /100WBC Nucleated RBCs # K/uL INR (0.86-1.11) Sodium (136-146) mmol/L Potassium (3.5-5.1) mmol/L Chloride (98-110) mmol/L Carbon Dioxide (21-31) mmol/L BUN (6.0-23.0) mg/dL Creatinine (0.6-1.5) mg/dL Est Cr Clr Drug Dosing mL/min Estimated GFR (MDRD) ml/min Glucose (60-110) mg/dL Calcium (8.8-10.8) mg/dL Phosphorus 4.3 (2.4-4.7) mg/dL Magnesium 1.5 (1.5-2.3) mEq/L Total Bilirubin (0.1-1.5) mg/dL AST (5-40) IU/L ALT (8-54) IU/L Alkaline Phosphatase (40-150) Troponin I < 0.10 (0.0-0.29) NG/ML Total Protein (6.0-8.0) g/dL Albumin (3.4-4.8) g/dL Globulin (2.0-3.5) g/dL Albumin/Globulin Ratio (1.3-2.8) Amylase (10-90) U/L Lipase (7-80) U/L Urine Color YELLOW Urine Appearance CLEAR Urine pH 5.5 (5.0-8.0) Ur Specific [place] 1.025 (1.001-1.035) Urine Protein NEGATIVE (NEGATIVE) mg/dL Urine Glucose (UA) NEGATIVE (NEGATIVE) mg/dL Urine Ketones NEGATIVE (NEGATIVE) mg/dL Urine Occult Blood NEGATIVE (NEGATIVE) Urine Nitrite NEGATIVE (NEGATIVE) Urine Bilirubin NEGATIVE (NEGATIVE) Urine Urobilinogen 0.2 (<2.0) EU/dL Ur Leukocyte Esterase NEGATIVE (NEGATIVE) Urine RBC 0-1 (0-2/HPF) Urine WBC 1-2 (0-5/HPF) Ur Epithelial Cells FEW (NONE-FEW) Amorphous Sediment FEW (NEGATIVE) Urine Bacteria FEW (NEGATIVE) Meds: Medications Generic Name Dose Route Start Last Admin Trade Name Freq PRN Reason Stop Dose Admin Acetaminophen 650 mg 08/29/17 17:46 Tylenol PO Q4H PRN Pain (Mild 1-3)/fever Diltiazem HCl 360 mg 08/30/17 09:00 Cardizem Cd PO DAILY LALA Hydrochlorothiazide 25 mg 08/30/17 09:00 Hydrochlorothiazide PO DAILY [facility] Sodium Chloride 1,000 mls @ 80 mls/hr 08/29/17 18:00 08/29/17 18:26 Normal Saline IV 80 mls/hr ASDIRECTED LALA Administration Metoprolol Tartrate 25 mg 08/29/17 21:00 Lopressor PO BID LALA Morphine Sulfate 2 mg 08/29/17 17:46 Morphine IVPUSH 08/30/17 17:50 Q2H PRN Pain (severe 7-10) Olmesartan 10 mg 08/30/17 09:00 Benicar PO DAILY LALA Ondansetron HCl 4 mg 08/29/17 17:46 Zofran Odt PO Q4H PRN nausea, able to take PO Sodium Chloride 10 ml 08/29/17 16:03 08/29/17 16:10 Saline Flush FLUSH 10 ml ASDIRECTED PRN Administration Keep Vein Open Sodium Chloride 2.5 ml 08/29/17 16:03 08/29/17 16:58 Saline Flush FLUSH 2.5 ml ASDIRECTED PRN Administration Keep Vein Open Tamsulosin HCl 0.4 mg 08/29/17 21:00 Flomax PO BEDTIME LALA Warfarin Sodium 5 mg 08/29/17 14:00 Coumadin PO SuMoTuWeFrSa@1400 LALA Warfarin Sodium 2.5 mg 09/05/17 14:00 Coumadin PO Th@1400 [facility] Discontinued Medications Generic Name Dose Route Start Last Admin Trade Name Branq PRN Reason Stop Dose Admin Sodium Chloride 1,000 mls @ 999 mls/hr 08/29/17 16:03 08/29/17 18:04 Normal Saline IV 08/29/17 17:03 999 mls/hr STAT ONE Infusion Iopamidol 110 ml 08/29/17 17:46 08/29/17 17:51 Isovue Multipack-370 (76%) IVPUSH 08/29/17 17:47 110 ml ONETIME STA Administration Morphine Sulfate 4 mg 08/29/17 16:42 08/29/17 16:57 Morphine IVPUSH 08/29/17 16:43 4 mg ONETIME ONE Administration Ondansetron HCl 4 mg 08/29/17 16:03 08/29/17 16:10 Zofran IVPUSH 08/29/17 16:04 4 mg ONETIME ONE Administration Pantoprazole Sodium 80 mg 08/29/17 16:03 08/29/17 16:10 Protonix Iv IVPUSH 08/29/17 16:04 80 mg .BOLUS ONE Administration Departure - Departure Time of Disposition: 18:47 Disposition: Refer to Observation Condition: Good Clinical Impression: Near syncope, Generalized weakness Thoracic back pain Qualifiers: Chronicity: unspecified Back pain laterality: bilateral Qualified Code(s): M54.6 - Pain in thoracic spine - Discharge Information Referrals: PCP,None [Primary Care Provider] - Forms: ED Department Discharge - My Orders Last 24 Hours: My Active Orders 08/29/17 15:59 Cardiac Monitoring [RC] . DIRECTED EKG Documentation Completion [RC] STAT Oxygen Therapy, ED [RC] ASDIRECTED Pulse Oximetry [RC] ASDIRECTED Saline Lock Insert [OM.PC] Stat 08/29/17 16:01 Ang Abdomen [CT] Stat Ang Chest [CT] Stat 08/29/17 16:02 Head wo Cont [CT] Stat Thoracic Spine wo Cont [CT] Stat 08/29/17 16:03 Orthostatic Vital Signs [RC] ASDIRECTED Sodium Chloride 0.9% [Saline Flush] 10 ml FLUSH ASDIRECTED PRN Sodium Chloride 0.9% [Saline Flush] 2.5 ml FLUSH ASDIRECTED PRN - Assessment/Plan Last 24 Hours: My Active Orders 08/29/17 15:59 Cardiac Monitoring [RC] . DIRECTED EKG Documentation Completion [RC] STAT Oxygen Therapy, ED [RC] ASDIRECTED Pulse Oximetry [RC] ASDIRECTED Saline Lock Insert [OM.PC] Stat 08/29/17 16:01 Ang Abdomen [CT] Stat Ang Chest [CT] Stat 08/29/17 16:02 Head wo Cont [CT] Stat Thoracic Spine wo Cont [CT] Stat 08/29/17 16:03 Orthostatic Vital Signs [RC] ASDIRECTED Sodium Chloride 0.9% [Saline Flush] 10 ml FLUSH ASDIRECTED PRN Sodium Chloride 0.9% [Saline Flush] 2.5 ml FLUSH ASDIRECTED PRN
[2017-08-29 16:28] LABS: CHLORIDE,CL 104 mmol/L (98-110); SODIUM,NA 138 mmol/L (136-146)
[2017-08-29] MEDS ORDERED: Morphine 2 MG/ML Syringe IVPUSH ONE (16:42)
[2017-08-29] MEDS ORDERED: Iopamidol 755 MG/ML 500 ML Multipack Bottle IVPUSH STA (17:46)
[2017-08-29] MEDS: Sodium Chloride 0.9% 1,000 ML IV SCH (18:26)
[2017-08-29] MEDS: Tamsulosin 0.4 MG Cap.ER PO SCH (20:52)
[2017-08-29] MEDS: Metoprolol Tartrate 25 MG Tab PO SCH (20:52)
[2017-08-29] MEDS: Acetaminophen 325 MG Tab PO PRN (20:56)
[2017-08-30] MEDS: Ondansetron 4 MG Tab.DIS PO PRN ×3 (02:24→16:12)
[2017-08-30 05:54] LABS: CHLORIDE,CL 101 mmol/L (98-110); SODIUM,NA 134 mmol/L (136-146)
[2017-08-30] MEDS: Sodium Chloride 0.9% 1,000 ML IV SCH (06:29)
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
[2017-08-30] MEDS: Hydrochlorothiazide 25 MG Tab PO SCH (09:39)
[2017-08-30] MEDS: Diltiazem 180 MG Cap.CD PO SCH (09:40)
[2017-08-30] MEDS: Metoprolol Tartrate 25 MG Tab PO SCH ×2 (09:41→20:09)
[2017-08-30] MEDS: Olmesartan 20 MG Tab PO SCH (09:41)
[2017-08-30] MEDS: methylPREDNISolone Sodium Succinate 125 MG/2 ML SDV IVPUSH SCH ×3 (09:42→20:12)
[2017-08-30] MEDS: Levofloxacin/Dextrose 5%-Water 750 MG in Premix Bag 1 BAG IV SCH (09:42)
[2017-08-30] MEDS: Morphine 2 MG/ML Syringe IVPUSH PRN ×3 (09:55→16:12)
--- NOTE | 2017-08-30 12:32 | CT ---
EXAM DATE: 08/29/17 PATIENT'S AGE: 72 Patient: NAMRATA MIGUEL Facility: [place], [place] : 1945 Study: CT Head [id number] 5:56:35 PM Ordering Physician: DR KING Final Report: INDICATION: Weakness, dizzy TECHNIQUE: CT Head without i.v. contrast. COMPARISON: None FINDINGS: CSF spaces: Within normal limits for age. Brain parenchyma: The brain parenchyma is normal in appearance with preservation of the gonzalez-white matter junction. No sign of mass, hemorrhage, or midline shift. Severe atherosclerotic calcifications of the vertebral arteries are noted. Skull base and calvarium: Trace air-fluid level noted in the left maxillary sinus. The mastoid air cells are clear. The visualized orbits are grossly unremarkable. No skull fractures are seen. IMPRESSION: 1. No CT evidence of acute infarct, hemorrhage, or mass effect seen. Dictated by: Malik Serrato MD @ 08/29/2017 18:12:09 (Electronic Signature) Report Signed by Proxy. SUGAR
--- NOTE | 2017-08-30 12:33 | CT ---
EXAM DATE: 08/29/17 PATIENT'S AGE: 72 Patient: NAMRATA MIGUEL Facility: [place], [place] Site Site : 1945 Study: CT Spine Thoracic [id number] 5:58:38 PM Ordering Physician: DR KING Final Report: Indication: Pain. Technique: Noncontrast CT images were obtained through the thoracic spine. Comparison: None. Findings: Mild, age indeterminate compression deformities of the T3 and T4 superior endplates. Chronic appearing compression deformity/prominent Schmorl`s node within the T12 superior endplate associated with vacuum disc phenomenon within the T11-12 intervertebral disc space. The thoracic kyphosis is maintained. No spondylolisthesis. Mild leftward mid thoracic curvature on this supine exam. Mild multilevel disc height loss in the mid thoracic spine and anterior osteophytes. Mineralization along the dorsal margin of the T7-8 disc space. No significant spinal canal or neural foraminal stenosis. Atherosclerotic calcifications in the aorta and coronary arteries. Incidental note of an aberrant origin and retroesophageal course of the right subclavian artery. Postsurgical changes of cholecystectomy. Impression: 1. Mild, age-indeterminate compression deformities of the T3 and T4 superior endplates. No retropulsion. 2. Chronic appearing compression deformity or prominent Schmorl`s node within the T12 superior endplate. 3. Multilevel disc degeneration and spondylosis without significant spinal canal or neural foraminal stenosis. Please note that all CT scans at this facility use dose modulation, iterative reconstruction, and/or weight-based dosing when appropriate to reduce radiation dose to as low as reasonably achievable. Dictated by Baljinder Cabral MD @ Aug 29 2017 6:35PM (Electronic Signature) Report Signed by Proxy. [facility]
--- NOTE | 2017-08-30 12:34 | CT ---
EXAM DATE: 08/29/17 PATIENT'S AGE: 72 Patient: NAMRATA MIGUEL Facility: [place], [place] Site Site : 1945 Study: CT Chest Angio -08/29/2017 6:23:34 PM Ordering Physician: Maxime Barba Final Report: INDICATION: TECHNIQUE: CTA chest aortic protocol acquired with 110 cc Isovue 370 IV contrast. COMPARISON: None FINDINGS: Cardiovascular structures: There is ectasia of the ascending aorta measuring 4.2 cm. No aortic dissection. Atherosclerotic disease within the aorta. Cardiomegaly. Coronary artery disease. There is an aberrant right subclavian artery, a congenital variant. The main pulmonary artery measures 4.0 cm. Mediastinum and renae: No mass or adenopathy. Lungs: Clear. Pleura and pericardium: No effusions. Chest wall and axilla: No mass or adenopathy. Upper abdomen: Unremarkable. Bones: Remote T4 superior endplate fracture. IMPRESSION: Ectasia of the ascending aorta measuring 4.2 cm. No aortic aneurysm or aortic dissection. Enlargement of the pulmonary artery suggests pulmonary arterial hypertension. Cardiomegaly with coronary artery disease. Note made of an aberrant right subclavian artery, a congenital variant. Please note that all CT scans at this facility use dose modulation, iterative reconstruction, and/or weight-based dosing when appropriate to reduce radiation dose to as low as reasonably achievable. Dictated by Genesis Huitron MD @ Aug 29 2017 6:25PM ----- ADDENDUM ----- Addendum: Please note that the Indication for this exam is syncope, patient on Coumadin. Dictated by Genesis Huitron MD @ Aug 29 2017 6:46PM (Electronic Signature) Report Signed by Proxy. [facility]
--- NOTE | 2017-08-30 12:35 | CT ---
EXAM DATE: 08/29/17 PATIENT'S AGE: 72 Patient: NAMRATA MIGUEL Facility: [place], [place] Site Site : 1945 Study: CT Abdomen Angio -08/29/2017 6:23:37 PM Ordering Physician: Maxime Barba Final Report: INDICATION: Near syncope, patient on Coumadin TECHNIQUE: CTA abdomen with 110 cc Isovue 370. COMPARISON: None FINDINGS: Lower chest: Unremarkable. Liver: Hepatic steatosis. Spleen: Unremarkable. Pancreas: Unremarkable. Gallbladder and bile ducts: Status post cholecystectomy. Adrenal glands: Unremarkable. Kidneys: Unremarkable. No kidney or ureteral stones and no hydronephrosis. GI tract: Unremarkable. Appendix is surgically absent. Vascular structures: No aortic dissection or aneurysm. The superior mesenteric, inferior mesenteric, celiac, and bilateral renal arteries are patent. Lymph nodes: Unremarkable. Miscellaneous: Unremarkable. No free air or significant free fluid. Bones: Unremarkable for age. IMPRESSION: No aortic dissection or aneurysm. No acute intra-abdominal process identified. Hepatic steatosis. Status post cholecystectomy and appendectomy. Please note that all CT scans at this facility use dose modulation, iterative reconstruction, and/or weight-based dosing when appropriate to reduce radiation dose to as low as reasonably achievable. Dictated by Genesis Huitron MD @ Aug 29 2017 6:25PM (Electronic Signature) Report Signed by Proxy. [facility]
[2017-08-30] MEDS: Acetaminophen 325 MG Tab PO PRN (13:22)
[2017-08-30] MEDS ORDERED: Warfarin 5 MG Tab PO SCH (14:00)
[2017-08-30] MEDS ORDERED: Cyclobenzaprine 10 MG Tab PO PRN (17:17)
[2017-08-30] MEDS ORDERED: traMADol 50 MG Tab PO PRN (17:20)
[2017-08-30] MEDS: Tamsulosin 0.4 MG Cap.ER PO SCH (20:09)
[2017-08-31] MEDS: methylPREDNISolone Sodium Succinate 125 MG/2 ML SDV IVPUSH SCH ×2 (03:36→08:10)
--- NOTE | 2017-08-31 05:41 | PCM.DCSUM1 ---
<Roverto,Michoacano - Last Filed: 08/31/17 08:52> Discharge Summary - Hospital Course Free Text/Narrative:: 72 year old male with history of AF, Chronic Sinusitis and Chronic back pain admitted 08/30/17 for near syncope, dizziness, AF, Acute bacterial sinusitis & spinal fracture. ED work-up included CBC/CMP/Amylase/Lipase/UA/Troponin/EKG/CXR/ CT head/CT T-spine/CTA Abdomen/Angiography. CBC revealed leukocytosis and CT T- spine revealed old spinal fractures. All other work-up was non-contributory. Patient wa transferred to floor for observation with telemetry. Complete evaluation on floor was highly suggestive of acute bacterial sinusitis. He was treated with Levaquin IV and Solumedrol IV. He improved rapidly. His back pain was chronic. He already had MRI set up on 09/[address] Sahu. His AF was rate controlled throughout hospitalization. He sees Dr. Donato for this and already had appointment set-up for 09/05. He was discharged home on Levaquin PO for 3 days, 6 day medrol dose pack and 1 week prescription for Cyclobenzaprine. F/u with Dr. Sahu was arranged for 09/06. Admission Diagnosis: 1. Near-Syncope 2. Dizziness 3. Chronic AF, rate controlled 4. T-spine Fractures Discharge Diagnosis/Plan: 1. Acute Bacterial Sinusitis -Levaquin 750 mg PO Daily, 3 days -Medol Dose Pack, 6 days -start both medication day after discharge 2. Near-Syncope, secondary to #1, resolved 3. Dizziness, secondary to #1, resolved 4. Chronic AF, rate controlled -continue home medications -f/u with Dr. Donato 09/05 5. Chronic T-Spine Fractures -Cyclobenzaprine 10 mg PO Bedtime PRN for back pain, 7 days -MRI on 09/02 previously scheduled -f/u with Dr. Sahu 09/06 - Discharge Data Discharge Date: 08/31/17 Discharge Disposition: Home, Self-Care 01 Condition: Good - Patient Instructions Diet: Heart Healthy Diet Activity: As Tolerated Notify Provider of: Fever Other/Special Instructions: 1. Start Levaquin & Medrol on 09/01/17. 2. You may start Cyclobenzaprine on 08/31/17. 3. MRI on 09/02/17. 4. appointment [address] Dr[address] Donato on 09/05/17. 5. appointment [address] Sahu on 09/06/17 - Discharge Plan Prescriptions/Med Rec: Cyclobenzaprine [Flexeril] 10 mg PO BEDTIME PRN #7 tablet PRN Reason: back pain Levofloxacin [Levaquin] 750 mg PO DAILY 3 Days #3 tablet methylPREDNISolone [Medrol] 0 mg PO ASDIRECTED 6 Days #1 dospk Home Medications: Home Meds Diltiazem HCl [Taztia Xt] 360 mg PO DAILY 04/12/15 [History] Metoprolol Tartrate [Lopressor] 25 mg PO BID 04/12/15 [History] Multivitamin [Multivitamins] 1 tab PO DAILY 04/12/15 [History] Olmesartan [Benicar] 10 mg PO DAILY 04/12/15 [History] [place]-3 Fatty Acids [Fish Oil] 1,000 mg pe PO DAILY 04/12/15 [History] Simvastatin [Zocor] 20 mg PO BEDTIME 04/12/15 [History] Lactobacillus Rhamnosus GG [Culturelle] 1 cap PO DAILY 02/23/17 [History] Warfarin Sodium [Jantoven] 5 mg PO [id number]@209902/23/17 [History] Colestipol HCl 1 tab PO ASDIRECTED 05/02/17 [History] Fiber Complete 1 tab PO ASDIRECTED 05/02/17 [History] Fluticasone Propionate [Flonase Allergy Relief] 1 - 2 spray NASBOTH DAILY [History] Hydrochlorothiazide 25 mg PO DAILY 05/02/17 [History] Tamsulosin HCl [Flomax] 0.4 mg PO BEDTIME 05/02/17 [History] Vit C/Vasquez Ac/Lut/Copper/ZnOx [Preservision Lutein Softgel] 1 tab PO DAILY 05/02 [History] Warfarin [Coumadin] 7.5 mg PO TH@2100 08/30/17 [History] Cyclobenzaprine [Flexeril] 10 mg PO BEDTIME PRN #7 tablet 08/31/17 [Rx] Levofloxacin [Levaquin] 750 mg PO DAILY 3 Days #3 tablet 08/31/17 [Rx] methylPREDNISolone [Medrol] 0 mg PO ASDIRECTED 6 Days #1 dospk 08/31/17 [Rx] Patient Handouts: Cyclobenzaprine tablets, Sinusitis, Adult, [id number], Degenerative Disk Disease, Levofloxacin tablets, Methylprednisolone tablets Referrals: Jesús Donato MD [Physician] - 09/06/17 9:15 am Sony Sahu MD [Physician] - 09/05/17 8:00 am - Discharge Summary/Plan Comment DC Time >30 min.: No - Patient Data Vitals - Most Recent: Last Vital Signs Temp 37.4 C 08/31/17 04:00 Pulse 92 08/31/17 04:00 Resp 18 08/31/17 04:00 BP 102/69 08/31/17 04:00 Pulse Ox 90 L 08/31/17 04:00 Weight - Most Recent: 94.1 kg I&O - Last 24 hours: Intake & Output 08/30/17 08/30/17 08/31/17 14:59 22:59 06:59 Intake Total 150 1250 600 Output Total 380 0 Balance 150 870 600 Lab Results - Last 24 hrs: Laboratory Results - last 24 hr 08/30/17 08/30/17 Range/Units 04:55 04:55 INR 2.01 H (0.86-1.11) Sodium 134 L (136-146) mmol/L Potassium 4.0 (3.5-5.1) mmol/L Chloride 101 (98-110) mmol/L Carbon Dioxide 26 (21-31) mmol/L BUN 18 (6.0-23.0) mg/dL Creatinine 0.8 (0.6-1.5) mg/dL Est Cr Clr Drug Dosing 88.92 mL/min Estimated GFR (MDRD) > 60.0 ml/min Glucose 102 (60-110) mg/dL Calcium 8.5 L (8.8-10.8) mg/dL Total Bilirubin 0.8 (0.1-1.5) mg/dL AST 17 (5-40) IU/L ALT 23 (8-54) IU/L Alkaline Phosphatase 41 (40-150) Total Protein 5.5 L (6.0-8.0) g/dL Albumin 3.6 (3.4-4.8) g/dL Globulin 1.9 L (2.0-3.5) g/dL Albumin/Globulin Ratio 1.9 (1.3-2.8) Med Orders - Current: Current Medications Acetaminophen (Tylenol) 650 mg PO Q4H PRN PRN Reason: Pain (Mild 1-3)/fever Last Admin: 08/30/17 13:22 Dose: 650 mg Cyclobenzaprine HCl (Flexeril) 10 mg PO BEDTIME PRN PRN Reason: back pain Last Admin: 08/30/17 22:06 Dose: 10 mg Diltiazem HCl (Cardizem Cd) 360 mg PO DAILY [facility] Last Admin: 08/30/17 09:40 Dose: 360 mg Hydrochlorothiazide (Hydrochlorothiazide) 25 mg PO DAILY [facility] Last Admin: 08/30/17 09:39 Dose: 25 mg Levofloxacin/Dextrose 750 mg/ (Premix) 150 mls @ 100 mls/hr IV Q24H [facility] Last Admin: 08/30/17 09:42 Dose: 100 mls/hr Methylprednisolone Sodium Succinate (Solu-Medrol) 125 mg IVPUSH Q6H [facility] Last Admin: 08/31/17 03:36 Dose: 125 mg Metoprolol Tartrate (Lopressor) 25 mg PO BID [facility] Last Admin: 08/30/17 20:09 Dose: 25 mg Olmesartan (Benicar) 10 mg PO DAILY [facility] Last Admin: 08/30/17 09:41 Dose: 10 mg Ondansetron HCl (Zofran Odt) 4 mg PO Q4H PRN PRN Reason: nausea, able to take PO Last Admin: 08/30/17 16:12 Dose: 4 mg Sodium Chloride (Saline Flush) 10 ml FLUSH ASDIRECTED PRN PRN Reason: Keep Vein Open Last Admin: 08/29/17 16:10 Dose: 10 ml Sodium Chloride (Saline Flush) 2.5 ml FLUSH ASDIRECTED PRN PRN Reason: Keep Vein Open Last Admin: 08/29/17 16:58 Dose: 2.5 ml Tamsulosin HCl (Flomax) 0.4 mg PO BEDTIME [facility] Last Admin: 08/30/17 20:09 Dose: 0.4 mg Tramadol HCl (Ultram) 50 mg PO Q8H PRN PRN Reason: Pain Warfarin Sodium (Coumadin) 7.5 mg PO Th@1400 [facility] Warfarin Sodium (Coumadin) 5 mg PO SuMoTuWeFrSa@1400 [facility] Last Admin: 08/30/17 13:22 Dose: 5 mg Warfarin Sodium (Coumadin) 7.5 mg PO TH@2100 [facility] Discontinued Medications Colestipol HCl (Colestipol Hcl) gm PO ASDIRECTED [facility] Sodium Chloride (Normal Saline) 1,000 mls @ 999 mls/hr IV STAT ONE Stop: 08/29/17 17:03 Last Infusion: 08/29/17 18:04 Dose: 999 mls/hr Sodium Chloride (Normal Saline) 1,000 mls @ 80 mls/hr IV ASDIRECTED [facility] Last Admin: 08/30/17 06:29 Dose: 80 mls/hr Iopamidol (Isovue Multipack-370 (76%)) 110 ml IVPUSH ONETIME STA Stop: 08/29/17 17:47 Last Admin: 08/29/17 17:51 Dose: 110 ml Morphine Sulfate (Morphine) 4 mg IVPUSH ONETIME ONE Stop: 08/29/17 16:43 Last Admin: 08/29/17 16:57 Dose: 4 mg Morphine Sulfate (Morphine) 2 mg IVPUSH Q2H PRN PRN Reason: Pain (severe 7-10) Stop: 08/30/17 17:50 Last Admin: 08/30/17 16:12 Dose: 2 mg Ondansetron HCl (Zofran) 4 mg IVPUSH ONETIME ONE Stop: 08/29/17 16:04 Last Admin: 08/29/17 16:10 Dose: 4 mg Pantoprazole Sodium (Protonix Iv) 80 mg IVPUSH .BOLUS ONE Stop: 08/29/17 16:04 Last Admin: 08/29/17 16:10 Dose: 80 mg Warfarin Sodium (Coumadin) 5 mg PO SuMoTuWeFrSa@1400 [facility] Stop: 08/30/17 14:00 Last Admin: 08/29/17 22:49 Dose: Not Given *Q Meaningful Use (DIS) - VTE *Q VTE Criteria *Q: VTE Pharmacological Contraindications *Q: High INR Value - Stroke *Q Stroke Criteria *Q: - AMI *Q AMI Criteria *Q: <Naresh Phelan - Last Filed: 08/31/17 11:21> Discharge Summary - Hospital Course Free Text/Narrative:: I was present with the resident during history and examination. I discussed the case with the resident and agree with the findings and plan as documented in the residents note. - Patient Data Vitals - Most Recent: Last Vital Signs Temp 36.5 C 08/31/17 08:00 Pulse 77 08/31/17 08:18 Resp 20 08/31/17 08:00 BP 111/74 08/31/17 08:19 Pulse Ox 91 L 08/31/17 08:00 I&O - Last 24 hours: Intake & Output 08/30/17 08/31/17 08/31/17 22:59 06:59 14:59 Intake Total 1250 600 490 Output Total 380 0 Balance 870 600 490 Lab Results - Last 24 hrs: Laboratory Results - last 24 hr 08/31/17 08/31/17 Range/Units 05:15 05:15 WBC 13.49 H (4.0-11.0) K/uL RBC 4.22 L (4.50-5.90) M/uL Hgb 13.2 (13.0-17.0) g/dL Hct 39.4 (38.0-50.0) % MCV 93.4 (80.0-98.0) fL MCH 31.3 (27.0-32.0) pg MCHC 33.5 (31.0-37.0) g/dL RDW Std Deviation 44.7 (28.0-62.0) fl RDW Coeff of Tati 13 (11.0-15.0) % Plt Count 288 (150-400) K/uL MPV 9.70 (7.40-12.00) fL Neut % (Auto) 95.2 H (48.0-80.0) % Lymph % (Auto) 3.6 L (16.0-40.0) % [place] % (Auto) 1.2 (0.0-15.0) % Eos % (Auto) 0.0 (0.0-7.0) % Baso % (Auto) 0.0 (0.0-1.5) % Neut # (Auto) 12.9 H (1.4-5.7) K/uL Lymph # (Auto) 0.5 L (0.6-2.4) K/uL [place] # (Auto) 0.2 (0.0-0.8) K/uL Eos # (Auto) 0.0 (0.0-0.7) K/uL Baso # (Auto) 0.0 (0.0-0.1) K/uL Nucleated RBC % 0.0 /100WBC Nucleated RBCs # 0 K/uL INR 1.89 H (0.86-1.11) Med Orders - Current: Current Medications Discontinued Medications Acetaminophen (Tylenol) 650 mg PO Q4H PRN PRN Reason: Pain (Mild 1-3)/fever Last Admin: 08/30/17 13:22 Dose: 650 mg Colestipol HCl (Colestipol Hcl) gm PO ASDIRECTED [facility] Cyclobenzaprine HCl (Flexeril) 10 mg PO BEDTIME PRN PRN Reason: back pain Last Admin: 08/30/17 22:06 Dose: 10 mg Diltiazem HCl (Cardizem Cd) 360 mg PO DAILY [facility] Last Admin: 08/31/17 08:17 Dose: 360 mg Hydrochlorothiazide (Hydrochlorothiazide) 25 mg PO DAILY [facility] Last Admin: 08/31/17 08:17 Dose: 25 mg Sodium Chloride (Normal Saline) 1,000 mls @ 999 mls/hr IV STAT ONE Stop: 08/29/17 17:03 Last Infusion: 08/29/17 18:04 Dose: 999 mls/hr Sodium Chloride (Normal Saline) 1,000 mls @ 80 mls/hr IV ASDIRECTED [facility] Last Admin: 08/30/17 06:29 Dose: 80 mls/hr Levofloxacin/Dextrose 750 mg/ (Premix) 150 mls @ 100 mls/hr IV Q24H [facility] Last Admin: 08/31/17 08:13 Dose: 100 mls/hr Iopamidol (Isovue Multipack-370 (76%)) 110 ml IVPUSH ONETIME STA Stop: 08/29/17 17:47 Last Admin: 08/29/17 17:51 Dose: 110 ml Methylprednisolone Sodium Succinate (Solu-Medrol) 125 mg IVPUSH Q6H [facility] Last Admin: 08/31/17 08:10 Dose: 125 mg Metoprolol Tartrate (Lopressor) 25 mg PO BID [facility] Last Admin: 08/31/17 08:18 Dose: 25 mg Morphine Sulfate (Morphine) 4 mg IVPUSH ONETIME ONE Stop: 08/29/17 16:43 Last Admin: 08/29/17 16:57 Dose: 4 mg Morphine Sulfate (Morphine) 2 mg IVPUSH Q2H PRN PRN Reason: Pain (severe 7-10) Stop: 08/30/17 17:50 Last Admin: 08/30/17 16:12 Dose: 2 mg Olmesartan (Benicar) 10 mg PO DAILY [facility] Last Admin: 08/31/17 08:19 Dose: 10 mg Ondansetron HCl (Zofran) 4 mg IVPUSH ONETIME ONE Stop: 08/29/17 16:04 Last Admin: 08/29/17 16:10 Dose: 4 mg Ondansetron HCl (Zofran Odt) 4 mg PO Q4H PRN PRN Reason: nausea, able to take PO Last Admin: 08/30/17 16:12 Dose: 4 mg Pantoprazole Sodium (Protonix Iv) 80 mg IVPUSH .BOLUS ONE Stop: 08/29/17 16:04 Last Admin: 08/29/17 16:10 Dose: 80 mg Sodium Chloride (Saline Flush) 10 ml FLUSH ASDIRECTED PRN PRN Reason: Keep Vein Open Last Admin: 08/29/17 16:10 Dose: 10 ml Sodium Chloride (Saline Flush) 2.5 ml FLUSH ASDIRECTED PRN PRN Reason: Keep Vein Open Last Admin: 08/29/17 16:58 Dose: 2.5 ml Tamsulosin HCl (Flomax) 0.4 mg PO BEDTIME [facility] Last Admin: 08/30/17 20:09 Dose: 0.4 mg Tramadol HCl (Ultram) 50 mg PO Q8H PRN PRN Reason: Pain Warfarin Sodium (Coumadin) 5 mg PO SuMoTuWeFrSa@1400 [facility] Stop: 08/30/17 14:00 Last Admin: 08/29/17 22:49 Dose: Not Given Warfarin Sodium (Coumadin) 7.5 mg PO Th@1400 [facility] Warfarin Sodium (Coumadin) 5 mg PO SuMoTuWeFrSa@1400 [facility] Last Admin: 08/30/17 13:22 Dose: 5 mg Warfarin Sodium (Coumadin) 7.5 mg PO TH@2100 [facility] *Q Meaningful Use (DIS) - VTE *Q VTE Criteria *Q: - Stroke *Q Stroke Criteria *Q: - AMI *Q AMI Criteria *Q:
[2017-08-31 08:03] VITALS: BP 111/74
[2017-08-31] MEDS: Levofloxacin/Dextrose 5%-Water 750 MG in Premix Bag 1 BAG IV SCH (08:13)
[2017-08-31] MEDS: Diltiazem 180 MG Cap.CD PO SCH (08:17)
[2017-08-31] MEDS: Hydrochlorothiazide 25 MG Tab PO SCH (08:17)
[2017-08-31] MEDS: Metoprolol Tartrate 25 MG Tab PO SCH (08:18)
[2017-08-31] MEDS: Olmesartan 20 MG Tab PO SCH (08:19)
[2017-09-05] MEDS ORDERED: Warfarin 2.5 MG Tab PO SCH (14:00)
[2017-09-05] MEDS ORDERED: Warfarin 5 MG Tab PO SCH (21:00)
== END 2017-08-31 10:50 | disposition home or self-care (01) ==
LOC: MW.ED 15:30 → MW.MS 17:46
PROVIDERS: ADMIT Internal Medicine; ATTEND Internal Medicine
DX: J01.90 Acute sinusitis, unspecified (principal); B96.89 Other specified bacterial agents as the cause of diseases classified elsewhere; R55 Syncope and collapse; R42 Dizziness and giddiness; I48.2 Chronic atrial fibrillation; S22.039A Unspecified fracture of third thoracic vertebra, initial encounter for closed fracture; S22.049A Unspecified fracture of fourth thoracic vertebra, initial encounter for closed fracture; S22.089A Unspecified fracture of T11-T12 vertebra, initial encounter for closed fracture; D72.829 Elevated white blood cell count, unspecified; E78.00 Pure hypercholesterolemia, unspecified; I10 Essential (primary) hypertension; G47.30 Sleep apnea, unspecified; Z86.73 Personal history of transient ischemic attack (TIA), and cerebral infarction without residual deficits; Z79.01 Long term (current) use of anticoagulants; Z79.51 Long term (current) use of inhaled steroids; Z79.899 Other long term (current) drug therapy; Z88.0 Allergy status to penicillin; Z88.1 Allergy status to other antibiotic agents; Z88.8 Allergy status to other drugs, medicaments and biological substances; Z98.890 Other specified postprocedural states
CPT/HCPCS: 36415; 70450; 71275; 72128; 74175; 80053; 81001; 82150; 83690; 83735; 84100; 84484; 85025; 85610; 93005; 96361; 96365; 96366; 96375; 96376; 99285; A9270; C9113; G0378; J1956; J2270; J2405; J2930; J7040; Q9967; 96374; 99284

== ENCOUNTER 2017-09-07 17:37 | Emergency (ER) | payer MEDICARE, BC ==
--- NOTE | 2017-09-07 17:46 | EDM.PDOC ---
ED HPI GENERAL MEDICAL PROBLEM - General Chief Complaint: Respiratory Problem Stated Complaint: SINUS INFECTION/CONGESTION/COUGH Time Seen by Provider: 09/07/17 17:45 Source of Information: Reports: Patient History Limitations: Reports: No Limitations - History of Present Illness INITIAL COMMENTS - FREE TEXT/NARRATIVE: HISTORY AND PHYSICAL: History of present illness: Patient is a 72-year-old female who presents to the emergency room today with complaints of chest congestion and cough started today afternoon. Patient was recently admitted to the hospital for weakness and dizziness and diagnosed with a sinus infection. Was placed on Levaquin and Medrol Dosepak. He since has completed these medications. States he was feeling better - dizziness and weakness subsided and then yesterday felt as though he was "getting bronchitis" . Patient states "I want to admit this in the bud before it turns into something big". Denies any chest pain, shortness of breath, abdominal pain, nausea, vomiting or diarrhea. Does any fever or chills. Denies any history of smoking. Review of systems: As per history of present illness and below otherwise all systems reviewed and negative. Past medical history: As per history of present illness and as reviewed below otherwise noncontributory. Surgical history: As per history of present illness and as reviewed below otherwise noncontributory. Social history: No reported history of drug or alcohol abuse. Family history: As per history of present illness and as reviewed below otherwise noncontributory. Physical exam: Gen.: Well-developed and well-nourished 72-year-old female. Able to speak in full sentences without shortness of breath. Alert and oriented. HEENT: Atraumatic, normocephalic, pupils equal and reactive, negative for conjunctival pallor or scleral icterus, mucous membranes moist, throat clear, neck supple, nontender, trachea midline. Able to visualize the right tympanic membrane due to cerumen. Left TM normal. No lymphadenopathy. Lungs: Clear upper lobes to auscultation with diminished and faint rhonchi to bases bilaterally, breath sounds equal bilaterally, chest nontender. Heart: S1S2, regular rate and rhythm Abdomen: Soft, nondistended, nontender. Negative for masses. Negative for costovertebral tenderness. Pelvis: Stable nontender. Genitourinary: Deferred. Rectal: Deferred. Extremities: Atraumatic, moves all per self. Neurovascular unremarkable. Neuro: Awake, alert, oriented. Cranial nerves II through XII unremarkable. Cerebellum unremarkable. Motor and sensory unremarkable throughout. Exam nonfocal. Chest x-ray reveals clear lung carlos with no sign of pneumonia. Reports he does feel somewhat improved after his DuoNeb. After discussing shunts current home regiment after his discharge he states he was prescribed an inhaler but has not been using it regularly. Did educate him to use his albuterol inhaler 1- 2 puffs every 4-6 hours as needed for cough. Our RT provided the patient with a spacer to use, education was provided. He does have Flonase which she has not been using regularly, this may help with the nasal drainage and sinus infection that he just got over. At this time I'm going to prescribe Tessalon Perles for his cough. He may use 1 tab up to 3 times daily as needed. He is concerned that this cough will turn into a bronchitis/pneumonia. I will give him a Z-Poncho to hold onto if his cough worsens over the next couple days. Patient voices understanding and is agreeable to plan of care. Denies any further questions or concerns at this time. Diagnostics: 2 view chest x-ray Therapeutics: EddyoNeb Impression: Bronchitis, viral Plan: 1. Please use your inhaler as we discussed. You may take 1-2 puffs every 4-6 hours as needed for cough 2. Tessalone Perles have been prescribed for cough cessation. He may take 1 tab up to 3 times daily. Do not chew this tablet. 3. With your concern of the bronchitis developing into something bigger I have given you a prescription for a Z-Poncho, this is an antibiotic. As we discussed I would like you to hang onto this and if your cough becomes worse he may fill it at that time. 4. Follow-up with your primary care provider in the next 1-2 days. Return to the ED as needed and as discussed Definitive disposition and diagnosis as appropriate pending reevaluation and review of above. Duration: Day(s): (2) - Related Data Allergies Allergy/AdvReac Type Severity Reaction Status Date / Time amoxicillin [Amoxicillin] Allergy Diarrhea Verified 09/07/17 17:43 clavulanic acid Allergy Diarrhea Verified 09/07/17 17:43 [From Augmentin] doxycycline Allergy Diarrhea Verified 09/07/17 17:43 montelukast AdvReac Diarrhea Verified 10/14/17 17:43 Home Meds: Home Meds Diltiazem HCl [Taztia Xt] 360 mg PO DAILY 04/12/15 [History] Metoprolol Tartrate [Lopressor] 25 mg PO BID 04/12/15 [History] Multivitamin [Multivitamins] 1 tab PO DAILY 04/12/15 [History] Olmesartan [Benicar] 10 mg PO DAILY 04/12/15 [History] [place]-3 Fatty Acids [Fish Oil] 1,000 mg pe PO DAILY 04/12/15 [History] Simvastatin [Zocor] 20 mg PO BEDTIME 04/12/15 [History] Lactobacillus Rhamnosus GG [Culturelle] 1 cap PO DAILY 02/23/17 [History] Warfarin Sodium [Jantoven] 5 mg PO SUMOTUWESA@209902/23/17 [History] Colestipol HCl 1 tab PO ASDIRECTED 05/02/17 [History] Fiber Complete 1 tab PO ASDIRECTED 05/02/17 [History] Fluticasone Propionate [Flonase Allergy Relief] 1 - 2 spray NASBOTH DAILY [History] Hydrochlorothiazide 25 mg PO DAILY 05/02/17 [History] Tamsulosin HCl [Flomax] 0.4 mg PO BEDTIME 05/02/17 [History] Vit C/Vasquez Ac/Lut/Copper/ZnOx [Preservision Lutein Softgel] 1 tab PO DAILY 05/02 [History] Warfarin [Coumadin] 7.5 mg PO TH@2100 08/30/17 [History] Cyclobenzaprine [Flexeril] 10 mg PO BEDTIME PRN #7 tablet 08/31/17 [Rx] Levofloxacin [Levaquin] 750 mg PO DAILY 3 Days #3 tablet 08/31/17 [Rx] methylPREDNISolone [Medrol] 0 mg PO ASDIRECTED 6 Days #1 dospk 08/31/17 [Rx] Past Medical History HEENT History: Reports: Allergic Rhinitis, Impaired Vision, Sinusitis Other HEENT History: wears glasses, has dental implants and lower dentures Cardiovascular History: Reports: Afib, High Cholesterol, Hypertension, Other ( See Below) Respiratory History: Reports: None, Sleep Apnea Gastrointestinal History: Reports: None Other Gastrointestinal History: occas. heartburn Genitourinary History: Reports: Other (See Below) Other Genitourinary History: was told he has a "fatty liver" Musculoskeletal History: Reports: Back Pain, Chronic Other Musculoskeletal History: states has degenerative discs, hx of FX neck ' 02 wore hallo - no surgery needed Neurological History: Reports: TIA Other Neuro History: TIA 12 years ago, no residual effects Psychiatric History: Reports: Anxiety Endocrine/Metabolic History: Reports: None Hematologic History: Reports: None Immunologic History: Reports: None Oncologic (Cancer) History: Reports: None Dermatologic History: Reports: Other (See Below) Other Dermatologic History: current rash in groin area - Infectious Disease History Infectious Disease History: Reports: Measles - Past Surgical History Head Surgeries/Procedures: Reports: None HEENT Surgical History: Reports: Naso-Sinus Surgery Other HEENT Surgeries/Procedures: Sinus surgery Cardiovascular Surgical History: Reports: None Respiratory Surgical History: Reports: None Endocrine Surgical History: Reports: None Oncologic Surgical History: Reports: None Social & Family History - Family History Family Medical History: Noncontributory HEENT: Reports: None Cardiac: Reports: None Respiratory: Reports: None GI: Reports: None : Reports: None OBGYN: Reports: None Musculoskeletal: Reports: None Neurological: Reports: None Psychiatric: Reports: None Endocrine/Metabolic: Reports: None Hematologic: Reports: None Immunologic: Reports: None Dermatologic: Reports: None Oncologic: Reports: Breast - Tobacco Use Smoking Status *Q: Never Smoker Second Hand Smoke Exposure: No - Caffeine Use Caffeine Use: Reports: None Caffeine Use Comment: 1cup/day - Alcohol Use Days Per Week of Alcohol Use: 3 Number of Drinks Per Day: 1 Total Drinks Per Week: 3 - Recreational Drug Use Recreational Drug Use: No Drug Use in Last 12 Months: No ED ROS GENERAL - Review of Systems Review Of Systems: ROS reveals no pertinent complaints other than HPI. ED EXAM, GENERAL - Physical Exam Exam: See Below (See Dictation) Course - Vital Signs Last Recorded V/S: Last Vital Signs Temp 36.6 C 09/07/17 17:37 Pulse 94 09/07/17 17:37 Resp 18 09/07/17 17:37 BP 100/65 09/07/17 17:37 Pulse Ox 95 09/07/17 17:37 - Orders/Labs/Meds Orders: Active Orders 24 hr Category Date Time Status RT Aerosol Therapy [RC] ASDIRECTED Care 10/14/17 17:58 Active Chest 2V [CR] Stat Exams 09/07/17 17:58 Taken Meds: Medications Discontinued Medications Generic Name Dose Route Start Last Admin Trade Name Ada PRN Reason Stop Dose Admin Albuterol/Ipratropium 3 ml 09/07/17 17:58 09/07/17 18:06 Duoneb 3.0-0.5 Mg/3 Ml NEB 09/07/17 17:59 3 ml ONETIME ONE Administration Departure - Departure Time of Disposition: 19:14 Disposition: Home, Self-Care 01 Clinical Impression: Bronchitis - Discharge Information Referrals: PCP,None [Primary Care Provider] - Forms: ED Department Discharge Additional Instructions: My general discharge The following information is given to patients seen in the emergency department who are being discharged to home. This information is to outline your options for follow-up care. We provide all patients seen in our emergency department with a follow-up referral. The need for follow-up, as well as the timing and circumstances, are variable depending upon the specifics of your emergency department visit. If you don't have a primary care physician on staff, we will provide you with a referral. We always advise you to contact your personal physician following an emergency department visit to inform them of the circumstance of the visit and for follow-up with them and/or the need for any referrals to a consulting specialist. The emergency department will also refer you to a specialist when appropriate. This referral assures that you have the opportunity for follow-up care with a specialist. All of these measure are taken in an effort to provide you with optimal care, which includes your follow-up. Under all circumstances we always encourage you to contact your private physician who remains a resource for coordinating your care. When calling for follow-up care, please make the office aware that this follow-up is from your recent emergency room visit. If for any reason you are refused follow-up, please contact the [facility] Emergency Department at and asked to speak to the emergency department charge nurse. [facility] [address] [place] [id number] 1. Please use your inhaler as we discussed. You may take 1-2 puffs every 4-6 hours as needed for cough 2. Tessalone Perles have been prescribed for cough cessation. He may take 1 tab up to 3 times daily. Do not chew this tablet. 3. With your concern of the bronchitis developing into something bigger I have given you a prescription for a Z-Poncho, this is an antibiotic. As we discussed I would like you to hang onto this and if your cough becomes worse he may fill it at that time. 4. Follow-up with your primary care provider in the next 1-2 days. Return to the ED as needed and as discussed - My Orders Last 24 Hours: My Active Orders 09/07/17 17:58 RT Aerosol Therapy [RC] ASDIRECTED Chest 2V [CR] Stat - Assessment/Plan Last 24 Hours: My Active Orders 09/07/17 17:58 RT Aerosol Therapy [RC] ASDIRECTED Chest 2V [CR] Stat
[2017-09-07] MEDS ORDERED: Albuterol/Ipratropium 3.0-0.5 MG/3 ML Neb Soln NEB ONE (17:58)
[2017-09-07 19:38] VITALS: BP 107/68
--- NOTE | 2017-09-09 11:27 | CR ---
EXAM DATE: 09/07/17 PATIENT'S AGE: 72 Patient: NAMRATA MIGUEL Facility: [place], [place] Site . Site : 1945 Study: XRay Chest [id number]/[id number] 6:33:35 PM Ordering Physician: Doctor Macario Final Report: CHEST 2 VIEWS INDICATION: Chest pain and short of breath. IMPRESSION: Normal heart size and vascular pattern. Lungs are clear. No pneumothorax or pleural abnormality. There is tortuosity of the descending thoracic aorta with atherosclerotic calcification in the transverse segment. Dictated by Earnest Lilly MD @ Sep 07 2017 6:59PM (Electronic Signature) Report Signed by Proxy. SUGAR
== END 2017-09-07 19:40 | disposition home or self-care (01) ==
LOC: MW.ED 17:37
DX: J20.8 Acute bronchitis due to other specified organisms (principal); I10 Essential (primary) hypertension; I48.91 Unspecified atrial fibrillation; E78.00 Pure hypercholesterolemia, unspecified; G47.30 Sleep apnea, unspecified; F41.9 Anxiety disorder, unspecified; Z86.73 Personal history of transient ischemic attack (TIA), and cerebral infarction without residual deficits; Z98.890 Other specified postprocedural states; Z79.01 Long term (current) use of anticoagulants; Z79.2 Long term (current) use of antibiotics; Z79.899 Other long term (current) drug therapy; Z88.1 Allergy status to other antibiotic agents; Z88.8 Allergy status to other drugs, medicaments and biological substances
CPT/HCPCS: 71020; 71020-26; 94640; 99283; 99284

== ENCOUNTER 2017-09-09 22:48 | Emergency (ER) | payer MEDICARE, BC ==
[2017-09-09] MEDS ORDERED: Albuterol/Ipratropium 3.0-0.5 MG/3 ML Neb Soln NEB ONE (22:57)
--- NOTE | 2017-09-09 22:59 | EDM.PDOC ---
ED HPI GENERAL MEDICAL PROBLEM - General Chief Complaint: Respiratory Problem Stated Complaint: TROUBLE BREATHING Time Seen by Provider: 09/09/17 22:56 - History of Present Illness INITIAL COMMENTS - FREE TEXT/NARRATIVE: HISTORY AND PHYSICAL: History of present illness: Patient 72-year-old white male was seen 2 days prior for bronchitis presents with concern of continued cough he thought he would be better within 24 hours he is put on antibiotics chest x-ray was done at that time was unremarkable he' s also given cough medicine. He denies chest pain fever chills nausea vomiting or other complaints Review of systems: As per history of present illness and below otherwise all systems reviewed and negative. Past medical history: As per history of present illness and as reviewed below otherwise noncontributory. Surgical history: As per history of present illness and as reviewed below otherwise noncontributory. Social history: No reported history of drug or alcohol abuse. Family history: As per history of present illness and as reviewed below otherwise noncontributory. Physical exam: HEENT: Atraumatic, normocephalic, pupils reactive, negative for conjunctival pallor or scleral icterus, mucous membranes moist, throat clear, neck supple, nontender, trachea midline. Lungs: Clear to auscultation, breath sounds equal bilaterally, chest nontender. Heart: S1S2, regular, negative for clicks, rubs, or JVD. Abdomen: Soft, nondistended, nontender. Negative for masses or hepatosplenomegaly. Negative for costovertebral tenderness. Pelvis: Stable nontender. Genitourinary: Deferred. Rectal: Deferred. Extremities: Atraumatic, negative for cords or calf pain. Neurovascular unremarkable. Neuro: Awake, alert, oriented. Cranial nerves II through XII unremarkable. Cerebellum unremarkable. Motor and sensory unremarkable throughout. Exam nonfocal. Diagnostics: None Therapeutics: Albuterol ipratropium nebulizer Impression: #1 tracheobronchitis Definitive disposition and diagnosis as appropriate pending reevaluation and review of above. - Related Data Allergies Allergy/AdvReac Type Severity Reaction Status Date / Time amoxicillin [Amoxicillin] Allergy Diarrhea Verified 09/07/17 17:43 clavulanic acid Allergy Diarrhea Verified 09/07/17 17:43 [From Augmentin] doxycycline Allergy Diarrhea Verified 09/07/17 17:43 montelukast AdvReac Diarrhea Verified 09/07/17 17:43 Home Meds: Home Meds Diltiazem HCl [Taztia Xt] 360 mg PO DAILY 04/12/15 [History] Metoprolol Tartrate [Lopressor] 25 mg PO BID 04/12/15 [History] Multivitamin [Multivitamins] 1 tab PO DAILY 04/12/15 [History] Olmesartan [Benicar] 10 mg PO DAILY 04/12/15 [History] [place]-3 Fatty Acids [Fish Oil] 1,000 mg pe PO DAILY 04/12/15 [History] Simvastatin [Zocor] 20 mg PO BEDTIME 04/12/15 [History] Lactobacillus Rhamnosus GG [Culturelle] 1 cap PO DAILY 02/23/17 [History] Warfarin Sodium [Jantoven] 5 mg PO SUMOTUWESA@2100 02/23/17 [History] Colestipol HCl 1 tab PO ASDIRECTED 05/02/17 [History] Fiber Complete 1 tab PO ASDIRECTED 05/02/17 [History] Fluticasone Propionate [Flonase Allergy Relief] 1 - 2 spray NASBOTH DAILY [History] Hydrochlorothiazide 25 mg PO DAILY 05/02/17 [History] Tamsulosin HCl [Flomax] 0.4 mg PO BEDTIME 05/02/17 [History] Vit C/Vasquez Ac/Lut/Copper/ZnOx [Preservision Lutein Softgel] 1 tab PO DAILY 05/02 [History] Warfarin [Coumadin] 7.5 mg PO TH@2100 08/30/17 [History] Cyclobenzaprine [Flexeril] 10 mg PO BEDTIME PRN #7 tablet 08/31/17 [Rx] Levofloxacin [Levaquin] 750 mg PO DAILY 3 Days #3 tablet 08/31/17 [Rx] methylPREDNISolone [Medrol] 0 mg PO ASDIRECTED 6 Days #1 dospk 08/31/17 [Rx] Past Medical History HEENT History: Reports: Allergic Rhinitis, Impaired Vision, Sinusitis Other HEENT History: wears glasses, has dental implants and lower dentures Cardiovascular History: Reports: Afib, High Cholesterol, Hypertension, Other ( See Below) Respiratory History: Reports: None, Sleep Apnea Gastrointestinal History: Reports: None Other Gastrointestinal History: occas. heartburn Genitourinary History: Reports: Other (See Below) Other Genitourinary History: was told he has a "fatty liver" Musculoskeletal History: Reports: Back Pain, Chronic Other Musculoskeletal History: states has degenerative discs, hx of FX neck ' 02 wore hallo - no surgery needed Neurological History: Reports: TIA Other Neuro History: TIA 12 years ago, no residual effects Psychiatric History: Reports: Anxiety Endocrine/Metabolic History: Reports: None Hematologic History: Reports: None Immunologic History: Reports: None Oncologic (Cancer) History: Reports: None Dermatologic History: Reports: Other (See Below) Other Dermatologic History: current rash in groin area - Infectious Disease History Infectious Disease History: Reports: Measles - Past Surgical History Head Surgeries/Procedures: Reports: None HEENT Surgical History: Reports: Naso-Sinus Surgery Other HEENT Surgeries/Procedures: Sinus surgery Cardiovascular Surgical History: Reports: None Respiratory Surgical History: Reports: None Endocrine Surgical History: Reports: None Oncologic Surgical History: Reports: None Social & Family History - Family History Family Medical History: Noncontributory HEENT: Reports: None Cardiac: Reports: None Respiratory: Reports: None GI: Reports: None : Reports: None OBGYN: Reports: None Musculoskeletal: Reports: None Neurological: Reports: None Psychiatric: Reports: None Endocrine/Metabolic: Reports: None Hematologic: Reports: None Immunologic: Reports: None Dermatologic: Reports: None Oncologic: Reports: Breast - Tobacco Use Smoking Status *Q: Never Smoker Second Hand Smoke Exposure: No - Caffeine Use Caffeine Use: Reports: None Caffeine Use Comment: 1cup/day - Alcohol Use Days Per Week of Alcohol Use: 3 Number of Drinks Per Day: 1 Total Drinks Per Week: 3 - Recreational Drug Use Recreational Drug Use: No Drug Use in Last 12 Months: No ED ROS GENERAL - Review of Systems Review Of Systems: ROS reveals no pertinent complaints other than HPI. ED EXAM, GENERAL - Physical Exam Exam: See Below (See dictation) Course - Orders/Labs/Meds Orders: Active Orders 24 hr Category Date Time Status RT Aerosol Therapy [RC] ASDIRECTED Care 09/09/17 22:57 Ordered Albuterol/Ipratropium [DuoNeb 3.0-0.5 MG/3 ML] Med 09/09/17 22:57 Once 3 ml NEB ONETIME ONE Departure - Departure Time of Disposition: 22:59 Disposition: Home, Self-Care 01 Condition: Good Clinical Impression: Tracheobronchitis - Discharge Information Referrals: PCP,None [Primary Care Provider] - Additional Instructions: The following information is given to patients seen in the emergency department who are being discharged to home. This information is to outline your options for follow-up care. We provide all patients seen in our emergency department with a follow-up referral. The need for follow-up, as well as the timing and circumstances, are variable depending upon the specifics of your emergency department visit. If you don't have a primary care physician on staff, we will provide you with a referral. We always advise you to contact your personal physician following an emergency department visit to inform them of the circumstance of the visit and for follow-up with them and/or the need for any referrals to a consulting specialist. The emergency department will also refer you to a specialist when appropriate. This referral assures that you have the opportunity for followup care with a specialist. All of these measure are taken in an effort to provide you with optimal care, which includes your followup. Under all circumstances we always encourage you to contact your private physician who remains a resource for coordinating your care. When calling for followup care, please make the office aware that this follow-up is from your recent emergency room visit. If for any reason you are refused follow-up, please contact the [facility] emergency department at and asked to speak to the emergency department charge nurse. Albuterol as prescribed continue current medications follow-up primary medical doctor 1-2 days return as needed as discussed - My Orders Last 24 Hours: My Active Orders 09/09/17 22:57 RT Aerosol Therapy [RC] ASDIRECTED Albuterol/Ipratropium [DuoNeb 3.0-0.5 MG/3 ML] 3 ml NEB ONETIME ONE - Assessment/Plan Last 24 Hours: My Active Orders 09/09/17 22:57 RT Aerosol Therapy [RC] ASDIRECTED Albuterol/Ipratropium [DuoNeb 3.0-0.5 MG/3 ML] 3 ml NEB ONETIME ONE
[2017-09-09 23:58] VITALS: BP 109/62
== END 2017-09-09 23:59 | disposition home or self-care (01) ==
LOC: MW.ED 22:48
DX: J40 Bronchitis, not specified as acute or chronic (principal); I10 Essential (primary) hypertension; I48.91 Unspecified atrial fibrillation; E78.00 Pure hypercholesterolemia, unspecified; G47.30 Sleep apnea, unspecified; Z86.73 Personal history of transient ischemic attack (TIA), and cerebral infarction without residual deficits; Z98.890 Other specified postprocedural states; Z79.2 Long term (current) use of antibiotics; Z79.899 Other long term (current) drug therapy; Z79.01 Long term (current) use of anticoagulants; Z88.1 Allergy status to other antibiotic agents; Z88.8 Allergy status to other drugs, medicaments and biological substances
CPT/HCPCS: 94640; 99283; 99284

== ENCOUNTER 2017-12-01 21:07 | Emergency (ER) | payer MEDICARE, BC ==
[2017-12-01] MEDS ORDERED: Sodium Chloride 0.9% 10 ML Syringe FLUSH PRN (21:22)
[2017-12-01] MEDS ORDERED: Sodium Chloride 0.9% 2.5 ML Syringe FLUSH PRN (21:22)
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
[2017-12-01 22:14] LABS: CHLORIDE,CL 102 mmol/L (98-110); SODIUM,NA 137 mmol/L (136-146)
[2017-12-02 05:28] VITALS: BP 125/84
--- NOTE | 2017-12-02 15:01 | CT ---
EXAM DATE: 12/01/17 PATIENT'S AGE: 72 Patient: NAMRATA MIGUEL Facility: [place], [place] Site . Site : 1945 Study: CT Spine Lumbar [id number] 10:28:05 PM Ordering Physician: Maxime Barba Final Report: INDICATION: Back pain. TECHNIQUE: CT lumbar spine without i.v. contrast. Coronal and sagittal reformats were obtained. COMPARISON: None FINDINGS: Vertebral alignment: Alignment is normal. Vertebrae: No acute fractures or aggressive osseous lesions are identified. Discs and facet joints: Mild degree of multilevel degenerative disk disease. Endplates are intact at all levels. The facet joints are unremarkable in appearance. Extraspinal findings: Prevertebral soft tissues and visualized retroperitoneum are unremarkable. Moderate calcified plaque involving the abdominal aorta without aneurysmal dilatation. IMPRESSION: 1. No lumbar spine compression fracture or suspicious osseous lesion. Mild degree of multilevel degenerative disk disease. Dictated by David Moreno MD @ 12/01/2017 10:59:49 PM Dictated by: David Moreno MD @ 12/01/2017 22:59:55 (Electronic Signature) Report Signed by Proxy. [facility]
--- NOTE | 2017-12-02 15:02 | CT ---
EXAM DATE: 12/01/17 PATIENT'S AGE: 72 Patient: NAMRATA MIGUEL Facility: [place], [place] Site . Site : 1945 Study: CT Head [id number]/[id number] 10:28:36 PM Ordering Physician: Maxime Barba Final Report: INDICATION: Confusion, head pain. TECHNIQUE: CT Head without i.v. contrast. COMPARISON: Comparison head CT dated 08/29/2017. FINDINGS: New abnormal head CT findings. There is mass-effect on lateral horn of right ventricle with anterior displacement of the choroid, visualized on series 201, image 35. Brain parenchyma posterior to the right lateral ventricle is hypodense and heterogeneous in attenuation. No midline shift. Possible parenchymal hemorrhage involving the splenium on series 201, image 25. 4th ventricle and basal cisterns are patent. No mass effect on left lateral ventricle. No abnormal extra-axial fluid collection. Calvarium intact. No fracture. Paranasal sinuses and mastoid air cells are clear. IMPRESSION: 1. Significant interval changes from 08/29/2017. New heterogeneous right parietal mass effect, compressing right lateral ventricle with likely small focus of parenchymal hemorrhage. Findings suspicious for new intracranial mass- effect from 08/29/2017. Recommend brain MRI without and with IV contrast to evaluate likely new hemorrhagic brain lesion from August 2017. Critical Results called to Dr. Swartz on 12/01/2017 at 10:49pm [employer]. Dictated by David Moreno MD @ 12/01/2017 10:52:29 PM Dictated by: David Moreno MD @ 12/01/2017 22:52:41 (Electronic Signature) Report Signed by Proxy. [facility]
--- NOTE | 2017-12-02 15:04 | CT ---
EXAM DATE: 12/01/17 PATIENT'S AGE: 72 Patient: NAMRATA MIGUEL Facility: [place], [place] Site . Site : 1945 Study: CT Spine Thoracic [id number] 10:29:19 PM Ordering Physician: Maxime Barba Final Report: INDICATION: Back pain. TECHNIQUE: CT thoracic spine without i.v. contrast. Coronal and sagittal reformats were obtained. COMPARISON: CT thoracic spine dated 08/29/2017. FINDINGS: Minimal compression abnormalities involving superior endplates of T3 and T4, unchanged. Multilevel thoracic spine degenerative disk disease with new vacuum disc phenomena at T7-T8. Superior endplate Schmorl`s node involving T12 with underlying degenerative disc disease at T11-T12, no change. No interval subluxation injury or suspicious osseous lesion. Image posterior ribs are intact. 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 Severe calcified coronary artery disease. Gallbladder surgically absent. IMPRESSION: 1. Mild degree of multilevel thoracic spine degenerative disk disease. Slight worsening degenerative disk disease at T7-T8. No interval compression fracture or abnormal subluxation injury. Dictated by David Moreno MD @ 12/01/2017 11:15:58 PM Dictated by: David Moreno MD @ 12/01/2017 23:16:02 (Electronic Signature) Report Signed by Proxy. [facility]
--- NOTE | 2017-12-02 15:05 | CR ---
EXAM DATE: 12/01/17 PATIENT'S AGE: 72 Patient: NAMRATA MIGUEL Facility: [place], [place] Site . Site : 1945 Study: XRay Chest [id number]/7/[id number] 10:29:47 PM Ordering Physician: Maxime Barba Final Report: INDICATION: Back pain. TECHNIQUE: Chest radiograph 2 views COMPARISON: 09/07/2017. FINDINGS: Ectatic descending thoracic aorta. Lung markings are stable. No pleural effusion or pneumothorax. Bones and soft tissues unremarkable. IMPRESSION: 1. No acute abnormality or interval change from 09/07/2017. Dictated by David Moreno MD @ 12/01/2017 10:54:16 PM Dictated by: David Moreno MD @ 12/01/2017 22:54:22 (Electronic Signature) Report Signed by Proxy. [facility]
== END 2017-12-02 00:02 ==
LOC: MW.ED 21:07
DX: G93.89 Other specified disorders of brain (principal); E78.00 Pure hypercholesterolemia, unspecified; I10 Essential (primary) hypertension; I48.91 Unspecified atrial fibrillation; Z88.8 Allergy status to other drugs, medicaments and biological substances; Z79.899 Other long term (current) drug therapy; Z79.01 Long term (current) use of anticoagulants; Z88.1 Allergy status to other antibiotic agents; Z86.718 Personal history of other venous thrombosis and embolism
CPT/HCPCS: 36415; 70450; 70450-26; 71046; 71046-26; 72128; 72128-26; 72131; 72131-26; 80053; 84443; 84484; 85025; 85610; 93005; 99285-25; 99291